=== PATIENT | female | born 1955 | race African-American/Black ===

== ENCOUNTER 2017-11-22 17:13 | Inpatient (IN) | payer OTHER ==
[2017-11-22 17:37] VITALS: BMI 23.1
--- NOTE | 2017-11-22 20:21 | HP ---
CIWA Score - CIWA Score Nausea/Vomitin Muscle Tremors: 3 Anxiety: 4-Mod. Anxious/Guarded Agitation: 1-Slight > Activity Paroxysmal Sweats: No Perspiration Orientation: 0-Oriented Tacttile Disturbances: 3-Moderate Itch/Numb/Burn Auditory Disturbances: 0-None Visual Disturbances: 2-Mild Sensitivity Headache: 3-Moderate CIWA-Ar Total Score: 18 Admission ROS BHS - HPI Chief Complaint: Alcohol withdrawal symptoms Allergies/Adverse Reactions: Allergies Allergy/AdvReac Type Severity Reaction Status Date / Time No Known Allergies Allergy Verified 11/22/17 20:01 History of Present Illness: 62 years old female with a long history of alcohol dependence is seeking admission to detox. Patient was in detox in 2010 and reports insignificant period of sobriety. She has medical history HTN, dementia, hyperlipidemia, anxiety and depression. She reports suicide attempt in 2012 and denies suicidal ideation at this time. Patient is on buprenorphine/naloxone tablet 8-2mg 1 tablet sublingual daily. LDM was today. Exam Limitations: No Limitations - Ebola screening Have you traveled outside of the country in the last 21 days: No Have you had contact with anyone from an Ebola affected area: No Have you been sick,other than usual withdrawal symptoms: No Do you have a fever: No - Review of Systems Constitutional: Chills, Loss of Appetite, Malaise, Changes in sleep EENT: reports: Cataracts (right eyes- reports blurred vision in right eye) Respiratory: reports: No Symptoms reported Cardiac: reports: No Symptoms Reported GI: reports: Diarrhea (x 2), Nausea, Poor Appetite, Poor Fluid Intake, Abdominal cramping : reports: No Symptoms Reported Musculoskeletal: reports: Back Pain Integumentary: reports: Dryness Neuro: reports: Headache, Tremors Endocrine: reports: No Symptoms Reported Hematology: reports: No Symptoms Reported Psychiatric: reports: Anxious, Depressed Other Systems: Reviewed and Negative Patient History - Patient Medical History Hx Anemia: No Hx Asthma: No Hx Chronic Obstructive Pulmonary Disease (COPD): No Hx Cancer: No Hx Cardiac Disorders: No Hx Congestive Heart Failure: No Hx Hypertension: Yes (amlodipine ) Hx Hypercholesterolemia: No Hx Pacemaker: No HX Cerebrovascular Accident: No Hx Seizures: No Hx Dementia: Yes (Not on medication) Hx Diabetes: No Hx Gastrointestinal Disorders: No Hx Liver Disease: No Hx Genitourinary Disorders: No Hx Sexually Transmitted Disorders: No Hx Renal Disease (ESRD): No Hx Thyroid Disease: No Hx Human Immunodeficiency Virus (HIV): No (Negative 2017) Hx Hepatitis C: No Hx Depression: Yes (Prozac) Hx Suicide Attempt: Yes (Attempt in 2013, denies suicidal ideation at this time) Hx Bipolar Disorder: No Hx Schizophrenia: No Other Medical History: Anxiety - Not on medication - Patient Surgical History Past Surgical History: No - PPD History Previous Implant?: No (PPD POSITIVE . INH TREATMENT FOR 6 MONTHS) Documented Results: Positive w/proof Implanted On Prior [facility] Admission?: No PPD to be Administered?: No - Reproductive History Patient is a Female of Child Bearing Age (11 -55 yrs old): Yes LMP comment: MENOPAUSAL Patient : No - Smoking Cessation Smoking history: Current some day smoker Aproximately how many cigarettes per day: 10 Hx Chewing Tobacco Use: No Initiated information on smoking cessation: Yes 'Breaking Loose' booklet given: 11/22/17 - Substance & Tx. History Hx Alcohol Use: Yes Hx Substance Use: No Substance Use Type: Alcohol Hx Substance Use Treatment: Yes ([facility] 2010) - Substances Abused Alcohol Route: Oral Frequency: Daily Amount used: 6 pack BEER Age of first use: 28 Date of Last Use: 11/22/17 Family Disease History - Family Disease History Family History: Denies Admission Physical Exam [facility] - Vital Signs Vital Signs: Vital Signs - 24 hr 11/22/17 17:30 Temperature 98.8 F Pulse Rate 78 Respiratory 18 Rate Blood Pressure 125/82 - Physical General Appearance: Yes: Moderate Distress, Tremorous, Irritable, Sweating, Anxious HEENTM: Yes: Normocephalic, Rhinorrhea, Other (right eye cataract) Respiratory: Yes: Lungs Clear, Normal Breath Sounds, No Respiratory Distress Neck: Yes: Supple Breast: Yes: Breast Exam Deferred Cardiology: Yes: Regular Rhythm, Regular Rate Abdominal: Yes: Normal Bowel Sounds, Soft Genitourinary: Yes: Within Normal Limits Back: Yes: Normal Inspection Musculoskeletal: Yes: Back pain Extremities: Yes: Tremors Neurological: Yes: Alert, Normal Mood/Affect Integumentary: Yes: Dry Lymphatic: Yes: Within Normal Limits - Diagnostic (1) Alcohol dependence with uncomplicated withdrawal Current Visit: Yes Status: Chronic (2) Depression Current Visit: Yes Status: Chronic Qualifiers: Depression Type: unspecified Qualified Code(s): F32.9 - Major depressive disorder, single episode, unspecified (3) Anxiety Current Visit: Yes Status: Chronic (4) Hypertension Current Visit: Yes Status: Chronic (5) Encounter for monitoring Suboxone maintenance therapy Current Visit: Yes Status: Chronic (6) Dementia Current Visit: Yes Status: Chronic (7) Hyperlipidemia Current Visit: Yes Status: Chronic Qualifiers: Hyperlipidemia type: unspecified Qualified Code(s): E78.5 - Hyperlipidemia , unspecified Cleared for Admission [facility] - Detox or Rehab [facility] Level of Care: Medically Managed Detox Regimen/Protocol: Librium [facility] Breath Alcohol Content Breath Alcohol Content: 0.109 Urine Pregancy Test - Result Urine Test Results: Negative- NO Line Present Urine Drug Screen - Results Drug Screen Negative: Yes
[2017-11-22] MEDS ORDERED: ACETAMINOPHEN 325 MG TABLET (FP) PO PRN (20:43)
[2017-11-22] MEDS ORDERED: MAGNESIUM CITRATE 300 ML BOTTLE PO PRN (20:43)
[2017-11-22] MEDS ORDERED: LOPERAMIDE HCL 2 MG CAPSULE PO PRN (20:43)
[2017-11-22] MEDS ORDERED: MENTHOL/PHENOL 1 EACH UD MM PRN (20:43)
[2017-11-22] MEDS ORDERED: MAGNESIUM HYDROX 2400MG/30ML ORAL SUSPENSION 30 ML CUP PO PRN (20:43)
[2017-11-22] MEDS ORDERED: chlordiazePOXIDE HCL 25 MG CAPSULE PO PRN (20:43)
[2017-11-22] MEDS ORDERED: IBUPROFEN 400 MG TABLET (FP) PO PRN (20:43)
[2017-11-22] MEDS ORDERED: guaiFENesin/D-METHORPHAN HB 10 ML UNIT-DOSE CUPS PO PRN (20:43)
[2017-11-22] MEDS ORDERED: NICOTINE POLACRILEX 2 MG GUM BUC PRN (20:43)
[2017-11-22] MEDS ORDERED: P-EPHED 60MG/TRIPROLIDI 2.5MG TABLET PO PRN (20:43)
[2017-11-22] MEDS ORDERED: LIDOCAINE 2.5%/PRILOCAINE 2.5% (5 Gram/TUBE) TP ONE (20:47)
[2017-11-22] MEDS ORDERED: LIDOCAINE 2.5%/PRILOCAINE 2.5% (5 Gram/TUBE) TP SCH (21:00)
[2017-11-22] MEDS ORDERED: MELATONIN 5 MG TABLETS PO PRN (22:00)
[2017-11-22] MEDS ORDERED: chlordiazePOXIDE HCL 25 MG CAPSULE PO SCH (23:00)
[2017-11-23] MEDS ORDERED: chlordiazePOXIDE HCL 25 MG CAPSULE PO PRN (01:11)
[2017-11-23] MEDS ORDERED: chlordiazePOXIDE HCL 25 MG CAPSULE PO ONE (01:11)
[2017-11-23] MEDS ORDERED: cloNIDine HCL 0.1 MG TABLET PO ONE (01:17)
[2017-11-23] MEDS: THIAMINE HCL 100 MG TABLET (FP) PO SCH ×2 (01:26→22:30)
[2017-11-23] MEDS: GABAPENTIN 300 MG CAPSULE (FP) PO SCH ×3 (01:26→22:30)
[2017-11-23 01:48] LABS: URINE APPEARANCE CLEAR; URINE BILIRUBIN NEGATIVE (<2.0 mg/dL); URINE COLOR LTYELLOW; URINE GLUCOSE (UA) NEGATIVE (NEGATIVE); URINE KETONE NEGATIVE (NEGATIVE); URINE LEUK ESTERASE NEGATIVE (NEGATIVE); URINE NITRITE NEGATIVE (NEGATIVE); URINE PROTEIN NEGATIVE (NEGATIVE); URINE UROBILINOGEN NEGATIVE mg/dL (0.2-1.0)
[2017-11-23] MEDS: chlordiazePOXIDE HCL 25 MG CAPSULE PO SCH ×4 (05:57→22:31)
--- NOTE | 2017-11-23 07:42 | CONSULT ---
[facility] Psychiatric Consult - Data Date of interview: 11/23/17 Admission source: [facility] Identifying data: This is 62 years old female, widiwed, mother of three, living alone, on SSI, with a long history of alcohol dependence is seeking admission to detox. Patient was in detox in 2010 and reports insignificant period of sobriety. Patient reports no psychiatric hospitalization history Substance Abuse History: - Smoking Cessation. Smoking history: Current some day smoker. Aproximately how many cigarettes per day: 10. Hx Chewing Tobacco Use: No. Initiated information on smoking cessation: Yes. 'Breaking Loose' booklet given: 11/22/17. - Substance & Tx. History. Hx Alcohol Use: Yes. Hx Substance Use: No. Substance Use Type: Alcohol. Hx Substance Use Treatment: Yes ([facility] 2010). - Substances Abused. Alcohol. Route: Oral. Frequency: Daily. Amount used: 6 pack BEER. Age of first use: 28. Date of Last Use: Medical History: HTN, Hyperlipidemia, Psychiatric History: Patient reports history of deporession and anxiety, reports taking prior to admission: Trazodone 100mg po qhs. Prozac 20mg poqd Physical/Sexual Abuse/Trauma History: Denies Additional Comment: Trazodone 100mg po qhs. Prozac 20mg poqd Mental Status Exam - Mental Status Exam Alert and Oriented to: Person Cognitive Function: Fair Patient Appearance: Well Groomed Mood: Apprehensive Affect: Mood Congruent Patient Behavior: Cooperative Speech Pattern: Appropriate Voice Loudness: Normal Thought Process: Goal Oriented Thought Disorder: Being Controlled Hallucinations: Denies Suicidal Ideation: Denies Homicidal Ideation: Denies Insight/Judgement: Fair Sleep: Difficulty falling asleep Appetite: Weight gain Muscle strength/Tone: Mild Hypotonicity Gait/Station: Shuffling Additional Comments: Trazodone 100mg po qhs. Prozac 20mg poqd Psychiatric Findings - Problem List ([place] 1, 2,3) (1) Nicotine dependence Current Visit: Yes Status: Acute (2) Drug-induced mood disorder Current Visit: Yes Status: Acute (3) Alcohol dependence with uncomplicated withdrawal Current Visit: Yes Status: Chronic (4) Dementia Current Visit: Yes Status: Suspected (5) Hyperlipidemia Current Visit: Yes Status: Chronic Qualifiers: Hyperlipidemia type: unspecified Qualified Code(s): E78.5 - Hyperlipidemia , unspecified (6) Hypertension Current Visit: Yes Status: Chronic - Initial Treatment Plan Initial Treatment Plan: Trazodone 100mg po qhs. Prozac 20mg poqd
[2017-11-23 10:00] LABS: HEMATOCRIT 41.6 % (32.4-45.2); HEMOGLOBIN 14.1 GM/dL (10.7-15.3); MCH 33.1 pg (25.7-33.7); MCHC 33.8 g/dl (32.0-36.0); MEAN CELL VOLUME 97.7 fl (80-96); MEAN PLT VOLUME 8.2 fl (7.5-11.1); PLATELET COUNT 229 K/MM3 (134-434); RBC 4.26 M/mm3 (3.60-5.2); WHITE BLOOD COUNT 5.8 K/mm3 (4.0-10.0)
[2017-11-23 10:19] LABS: CHLORIDE 103 mmol/L (98-107); POTASSIUM 4.5 mmol/L (3.5-5.1); SODIUM 139 mmol/L (136-145)
[2017-11-23] MEDS: LORATADINE 10 MG TABLET PO SCH (10:31)
[2017-11-23] MEDS: BUPRENORPHINE/NALOXONE 8 MG/2 MG FILM PACKET SL SCH (10:31)
[2017-11-23] MEDS: PRENATAL VITAMINS W/ FOLIC ACID TABLET (FP) PO SCH (10:31)
[2017-11-23] MEDS: FLUoxetine HCL 20 MG CAPSULE (FP) PO SCH (10:31)
[2017-11-23] MEDS: amLODIPine BESYLATE 5 MG TABLET (FP) PO SCH (10:32)
[2017-11-23 10:43] LABS: ALBUMIN 3.7 g/dl (3.4-5.0); ALK PHOS 88 U/L (45-117); ANION GAP 7 (8-16); BILIRUBIN,TOTAL 0.6 mg/dL (0.2-1.0); BLOOD UREA NITROGEN 6 mg/dL (7-18); CALCIUM 9.5 mg/dL (8.5-10.1); CO2 29 mmol/L (21-32); CREATININE 0.7 mg/dL (0.55-1.02); GLUCOSE,RANDOM 82 mg/dL (74-106); SGOT/AST 25 U/L (15-37); SGPT/ALT 36 U/L (12-78); TOT PROT 7.4 g/dl (6.4-8.2)
[2017-11-23] MEDS: NICOTINE 14 MG/24 HOURS TOPICAL PATCH TD SCH (11:05)
--- NOTE | 2017-11-23 11:15 | PN ---
[facility] CIWA - CIWA Score Nausea/Vomitin-Mild Nausea/No Vomiting Muscle Tremors: 4-Moderate,w/Arms Extend Anxiety: 4-Mod. Anxious/Guarded Agitation: 3 Paroxysmal Sweats: 1-Minimal Palms Moist Orientation: 0-Oriented Tacttile Disturbances: 1-Very Mild Itch/Numbness Auditory Disturbances: 0-None Visual Disturbances: 0-None Headache: 1-Very Mild CIWA-Ar Total Score: 15 BHS Progress Note (SOAP) Subjective: sweat tremor restlessness mild gi distress last filled suboxone 11/20/17 x 30 days Objective: 11/23/17 11:17 Vital Signs Temperature 98.6 F 11/23/17 10:52 Pulse Rate 67 11/23/17 10:52 Respiratory Rate 16 11/23/17 10:52 Blood Pressure 108/66 11/23/17 10:52 O2 Sat by Pulse Oximetry (%) Laboratory Last Values WBC 5.8 K/mm3 (4.0-10.0) 11/23/17 08:00 RBC 4.26 M/mm3 (3.60-5.2) 11/23/17 08:00 Hgb 14.1 GM/dL (10.7-15.3) 11/23/17 08:00 Hct 41.6 % (32.4-45.2) 11/23/17 08:00 MCV 97.7 fl (80-96) H 11/23/17 08:00 MCH 33.1 pg (25.7-33.7) 11/23/17 08:00 MCHC 33.8 g/dl (32.0-36.0) 11/23/17 08:00 RDW 13.0 % (11.6-15.6) 11/23/17 08:00 Plt Count 229 K/MM3 (134-434) 11/23/17 08:00 MPV 8.2 fl (7.5-11.1) 11/23/17 08:00 Sodium 139 mmol/L (136-145) 11/23/17 08:00 Potassium 4.5 mmol/L (3.5-5.1) 11/23/17 08:00 Chloride 103 mmol/L (98-107) 11/23/17 08:00 Carbon Dioxide 29 mmol/L (21-32) 11/23/17 08:00 Anion Gap 7 (8-16) L 11/23/17 08:00 BUN 6 mg/dL (7-18) L 11/23/17 08:00 Creatinine 0.7 mg/dL (0.55-1.02) 11/23/17 08:00 Creat Clearance w eGFR > 60 (>60) 11/23/17 08:00 Random Glucose 82 mg/dL (74-106) 11/23/17 08:00 Calcium 9.5 mg/dL (8.5-10.1) 11/23/17 08:00 Total Bilirubin 0.6 mg/dL (0.2-1.0) 11/23/17 08:00 AST 25 U/L (15-37) 11/23/17 08:00 ALT 36 U/L (12-78) 11/23/17 08:00 Alkaline Phosphatase 88 U/L (45-117) 11/23/17 08:00 Total Protein 7.4 g/dl (6.4-8.2) 11/23/17 08:00 Albumin 3.7 g/dl (3.4-5.0) 11/23/17 08:00 Urine Color Ltyellow 11/22/17 01:30 Urine Appearance Clear 11/22/17 01:30 Urine pH 6.0 (5.0-8.0) 11/22/17 01:30 Ur Specific [place] 1.004 (1.001-1.035) 11/22/17 01:30 Urine Protein Negative (NEGATIVE) 11/22/17 01:30 Urine Glucose (UA) Negative (NEGATIVE) 11/22/17 01:30 Urine Ketones Negative (NEGATIVE) 11/22/17 01:30 Urine Blood Negative (NEGATIVE) 11/22/17 01:30 Urine Nitrite Negative (NEGATIVE) 11/22/17 01:30 Urine Bilirubin Negative (<2.0 mg/dL) 11/22/17 01:30 Urine Urobilinogen Negative mg/dL (0.2-1.0) 11/22/17 01:30 Ur Leukocyte Esterase Negative (NEGATIVE) 11/22/17 01:30 RPR Titer Nonreactive (NONREACTIVE) 11/23/17 08:00 lab noted Assessment: 11/23/17 11:17 withdrawal sx Plan: continue detox c
--- NOTE | 2017-11-23 14:35 | EKG ---
Test Reason : Blood Pressure : / mmHG Vent. Rate : 071 BPM Atrial Rate : 071 BPM P-R Int : 138 ms QRS Dur : 088 ms QT Int : 446 ms P-R-T Axes : 019 021 017 degrees QTc Int : 484 ms NORMAL SINUS RHYTHM MODERATE VOLTAGE CRITERIA FOR LVH, MAY BE NORMAL VARIANT BORDERLINE ECG WHEN COMPARED WITH ECG OF 14-AUG-2010 11:35, NO SIGNIFICANT CHANGE WAS FOUND Confirmed by JESSE WILSON, KEI ([id number]) on 11/23/2017 2:35:36 PM Referred By: Confirmed By:KEI MOLINA MD
[2017-11-23] MEDS: traZODone HCL 100 MG TABLET (FP) PO SCH (22:31)
[2017-11-23] MEDS ORDERED: chlordiazePOXIDE HCL 25 MG CAPSULE PO SCH (23:00)
[2017-11-24] MEDS: chlordiazePOXIDE HCL 25 MG CAPSULE PO SCH ×4 (05:39→22:14)
[2017-11-24] MEDS: FLUoxetine HCL 20 MG CAPSULE (FP) PO SCH (10:44)
[2017-11-24] MEDS: amLODIPine BESYLATE 5 MG TABLET (FP) PO SCH (10:44)
[2017-11-24] MEDS: BUPRENORPHINE/NALOXONE 8 MG/2 MG FILM PACKET SL SCH (10:44)
[2017-11-24] MEDS: GABAPENTIN 300 MG CAPSULE (FP) PO SCH ×2 (10:44→22:13)
[2017-11-24] MEDS: LORATADINE 10 MG TABLET PO SCH (10:44)
[2017-11-24] MEDS: PRENATAL VITAMINS W/ FOLIC ACID TABLET (FP) PO SCH (10:44)
[2017-11-24] MEDS: NICOTINE 14 MG/24 HOURS TOPICAL PATCH TD SCH (10:53)
--- NOTE | 2017-11-24 14:48 | PN ---
S CIWA - CIWA Score Nausea/Vomitin-No Nausea/No Vomiting Muscle Tremors: None Anxiety: 0-No Anxiety, at Ease Agitation: 1-Slight > Activity Paroxysmal Sweats: 1-Minimal Palms Moist Orientation: 0-Oriented Tacttile Disturbances: 0-None Auditory Disturbances: 0-None Visual Disturbances: 0-None Headache: 0-None Present CIWA-Ar Total Score: 2 BHS Progress Note (SOAP) Subjective: without complaints, would like to go to rehab- talking to counselor about possibilities Objective: 11/24/17 14:47 Vital Signs - 24 hr 11/23/17 11/23/17 11/24/17 17:44 22:06 00:30 Temperature 97.9 F 98.2 F Pulse Rate 69 67 Respiratory 18 20 18 Rate Blood Pressure 126/72 123/74 11/24/17 11/24/17 11/24/17 03:30 06:12 09:40 Temperature 97.7 F 98.1 F Pulse Rate 71 70 Respiratory 18 18 18 Rate Blood Pressure 130/58 103/72 11/24/17 13:58 Temperature 98.1 F Pulse Rate 82 Respiratory 18 Rate Blood Pressure 94/67 Laboratory Tests 11/22/17 11/23/17 11/23/17 01:30 08:00 08:00 WBC 5.8 RBC 4.26 Hgb 14.1 Hct 41.6 MCV 97.7 H MCH 33.1 MCHC 33.8 RDW 13.0 Plt Count 229 MPV 8.2 Sodium 139 Potassium 4.5 Chloride 103 Carbon Dioxide 29 Anion Gap 7 L BUN 6 L Creatinine 0.7 Creat Clearance w eGFR > 60 Random Glucose 82 Calcium 9.5 Total Bilirubin 0.6 AST 25 ALT 36 Alkaline Phosphatase 88 Total Protein 7.4 Albumin 3.7 Urine Color Ltyellow Urine Appearance Clear Urine pH 6.0 Ur Specific [place] 1.004 Urine Protein Negative Urine Glucose (UA) Negative Urine Ketones Negative Urine Blood Negative Urine Nitrite Negative Urine Bilirubin Negative Urine Urobilinogen Negative Ur Leukocyte Esterase Negative RPR Titer 11/23/17 08:00 WBC RBC Hgb Hct MCV MCH MCHC RDW Plt Count MPV Sodium Potassium Chloride Carbon Dioxide Anion Gap BUN Creatinine Creat Clearance w eGFR Random Glucose Calcium Total Bilirubin AST ALT Alkaline Phosphatase Total Protein Albumin Urine Color Urine Appearance Urine pH Ur Specific [place] Urine Protein Urine Glucose (UA) Urine Ketones Urine Blood Urine Nitrite Urine Bilirubin Urine Urobilinogen Ur Leukocyte Esterase RPR Titer Nonreactive grossly nl PE Vs nl Assessment: 11/24/17 14:47 62 years old female with a long history of alcohol dependence is here for alcohol detox Plan: continue alcohol detox protocol, to rehab at discharge if bed available
[2017-11-24] MEDS: MAG HYDROX/AL HYDROX/SIMETH 30 ML UNIT-DOSE CUP PO PRN (15:01)
[2017-11-24] MEDS: THIAMINE HCL 100 MG TABLET (FP) PO SCH (22:13)
[2017-11-24] MEDS: traZODone HCL 100 MG TABLET (FP) PO SCH (22:14)
[2017-11-24] MEDS ORDERED: chlordiazePOXIDE 5 MG CAPSULE PO SCH (23:00)
[2017-11-25] MEDS: MAG HYDROX/AL HYDROX/SIMETH 30 ML UNIT-DOSE CUP PO PRN ×3 (00:03→22:02)
[2017-11-25] MEDS: chlordiazePOXIDE 5 MG CAPSULE PO SCH ×4 (06:39→22:00)
[2017-11-25] MEDS: LORATADINE 10 MG TABLET PO SCH (10:35)
[2017-11-25] MEDS: GABAPENTIN 300 MG CAPSULE (FP) PO SCH ×2 (10:36→22:00)
[2017-11-25] MEDS: PRENATAL VITAMINS W/ FOLIC ACID TABLET (FP) PO SCH (10:36)
[2017-11-25] MEDS: BUPRENORPHINE/NALOXONE 8 MG/2 MG FILM PACKET SL SCH (10:36)
[2017-11-25] MEDS: NICOTINE 14 MG/24 HOURS TOPICAL PATCH TD SCH (10:36)
[2017-11-25] MEDS: amLODIPine BESYLATE 5 MG TABLET (FP) PO SCH (10:36)
[2017-11-25] MEDS: FLUoxetine HCL 20 MG CAPSULE (FP) PO SCH (10:36)
--- NOTE | 2017-11-25 13:33 | PN ---
S Progress Note (SOAP) Subjective: Epigastric pain, joint pain, sleep interruption Objective: 11/25/17 13:32 Vital Signs - 8 hr 11/25/17 11/25/17 06:00 10:34 Temperature 97.7 F 98.2 F Pulse Rate 69 89 Respiratory 18 18 Rate Blood Pressure 116/68 110/70 Laboratory Last Values WBC 5.8 K/mm3 (4.0-10.0) 11/23/17 08:00 RBC 4.26 M/mm3 (3.60-5.2) 11/23/17 08:00 Hgb 14.1 GM/dL (10.7-15.3) 11/23/17 08:00 Hct 41.6 % (32.4-45.2) 11/23/17 08:00 MCV 97.7 fl (80-96) H 11/23/17 08:00 MCH 33.1 pg (25.7-33.7) 11/23/17 08:00 MCHC 33.8 g/dl (32.0-36.0) 11/23/17 08:00 RDW 13.0 % (11.6-15.6) 11/23/17 08:00 Plt Count 229 K/MM3 (134-434) 11/23/17 08:00 MPV 8.2 fl (7.5-11.1) 11/23/17 08:00 Sodium 139 mmol/L (136-145) 11/23/17 08:00 Potassium 4.5 mmol/L (3.5-5.1) 11/23/17 08:00 Chloride 103 mmol/L (98-107) 11/23/17 08:00 Carbon Dioxide 29 mmol/L (21-32) 11/23/17 08:00 Anion Gap 7 (8-16) L 11/23/17 08:00 BUN 6 mg/dL (7-18) L 11/23/17 08:00 Creatinine 0.7 mg/dL (0.55-1.02) 11/23/17 08:00 Creat Clearance w eGFR > 60 (>60) 11/23/17 08:00 Random Glucose 82 mg/dL (74-106) 11/23/17 08:00 Calcium 9.5 mg/dL (8.5-10.1) 11/23/17 08:00 Total Bilirubin 0.6 mg/dL (0.2-1.0) 11/23/17 08:00 AST 25 U/L (15-37) 11/23/17 08:00 ALT 36 U/L (12-78) 11/23/17 08:00 Alkaline Phosphatase 88 U/L (45-117) 11/23/17 08:00 Total Protein 7.4 g/dl (6.4-8.2) 11/23/17 08:00 Albumin 3.7 g/dl (3.4-5.0) 11/23/17 08:00 Urine Color Ltyellow 11/22/17 01:30 Urine Appearance Clear 11/22/17 01:30 Urine pH 6.0 (5.0-8.0) 11/22/17 01:30 Ur Specific [place] 1.004 (1.001-1.035) 11/22/17 01:30 Urine Protein Negative (NEGATIVE) 11/22/17 01:30 Urine Glucose (UA) Negative (NEGATIVE) 11/22/17 01:30 Urine Ketones Negative (NEGATIVE) 11/22/17 01:30 Urine Blood Negative (NEGATIVE) 11/22/17 01:30 Urine Nitrite Negative (NEGATIVE) 11/22/17 01:30 Urine Bilirubin Negative (<2.0 mg/dL) 11/22/17 01:30 Urine Urobilinogen Negative mg/dL (0.2-1.0) 11/22/17 01:30 Ur Leukocyte Esterase Negative (NEGATIVE) 11/22/17 01:30 RPR Titer Nonreactive (NONREACTIVE) 11/23/17 08:00 Labs noted Assessment: 11/25/17 13:32 Withdrawal sx Plan: Continue detox
[2017-11-25] MEDS: traZODone HCL 100 MG TABLET (FP) PO SCH (21:59)
[2017-11-25] MEDS: THIAMINE HCL 100 MG TABLET (FP) PO SCH (22:00)
[2017-11-25] MEDS ORDERED: chlordiazePOXIDE HCL 10 MG CAPSULE PO SCH (23:00)
[2017-11-26] MEDS: chlordiazePOXIDE HCL 10 MG CAPSULE PO SCH ×2 (05:50→10:31)
[2017-11-26 06:43] VITALS: BP 108/71; PULSE 74; TEMP 97.7
--- NOTE | 2017-11-26 08:50 | DS ---
[facility] Detox Discharge Summary Admission Date: 11/22/17 Discharge Date: 11/26/17 - History Present History: Alcohol Dependence Additional Comments: 62 years old female admitted on 11/22/17 for alcohol withdrawal sx completed alcohol detox regimen tolerated well denies alcohol withdrawal sx alert oriented x 3 no acute distress [facility] - Physical Exam Results Vital Signs: Vital Signs Temperature 97.7 F 11/26/17 06:00 Pulse Rate 74 11/26/17 06:00 Respiratory Rate 18 11/26/17 06:00 Blood Pressure 108/71 11/26/17 06:00 O2 Sat by Pulse Oximetry (%) Pertinent Admission Physical Exam Findings: alcohol withdrawal sx Vital Signs Temperature 97.7 F 11/26/17 06:00 Pulse Rate 74 11/26/17 06:00 Respiratory Rate 18 11/26/17 06:00 Blood Pressure 108/71 11/26/17 06:00 O2 Sat by Pulse Oximetry (%) Laboratory Last Values WBC 5.8 K/mm3 (4.0-10.0) 11/23/17 08:00 RBC 4.26 M/mm3 (3.60-5.2) 11/23/17 08:00 Hgb 14.1 GM/dL (10.7-15.3) 11/23/17 08:00 Hct 41.6 % (32.4-45.2) 11/23/17 08:00 MCV 97.7 fl (80-96) H 11/23/17 08:00 MCH 33.1 pg (25.7-33.7) 11/23/17 08:00 MCHC 33.8 g/dl (32.0-36.0) 11/23/17 08:00 RDW 13.0 % (11.6-15.6) 11/23/17 08:00 Plt Count 229 K/MM3 (134-434) 11/23/17 08:00 MPV 8.2 fl (7.5-11.1) 11/23/17 08:00 Sodium 139 mmol/L (136-145) 11/23/17 08:00 Potassium 4.5 mmol/L (3.5-5.1) 11/23/17 08:00 Chloride 103 mmol/L (98-107) 11/23/17 08:00 Carbon Dioxide 29 mmol/L (21-32) 11/23/17 08:00 Anion Gap 7 (8-16) L 11/23/17 08:00 BUN 6 mg/dL (7-18) L 11/23/17 08:00 Creatinine 0.7 mg/dL (0.55-1.02) 11/23/17 08:00 Creat Clearance w eGFR > 60 (>60) 11/23/17 08:00 Random Glucose 82 mg/dL (74-106) 11/23/17 08:00 Calcium 9.5 mg/dL (8.5-10.1) 11/23/17 08:00 Total Bilirubin 0.6 mg/dL (0.2-1.0) 11/23/17 08:00 AST 25 U/L (15-37) 11/23/17 08:00 ALT 36 U/L (12-78) 11/23/17 08:00 Alkaline Phosphatase 88 U/L (45-117) 11/23/17 08:00 Total Protein 7.4 g/dl (6.4-8.2) 11/23/17 08:00 Albumin 3.7 g/dl (3.4-5.0) 11/23/17 08:00 Urine Color Ltyellow 11/22/17 01:30 Urine Appearance Clear 11/22/17 01:30 Urine pH 6.0 (5.0-8.0) 11/22/17 01:30 Ur Specific [place] 1.004 (1.001-1.035) 11/22/17 01:30 Urine Protein Negative (NEGATIVE) 11/22/17 01:30 Urine Glucose (UA) Negative (NEGATIVE) 11/22/17 01:30 Urine Ketones Negative (NEGATIVE) 11/22/17 01:30 Urine Blood Negative (NEGATIVE) 11/22/17 01:30 Urine Nitrite Negative (NEGATIVE) 11/22/17 01:30 Urine Bilirubin Negative (<2.0 mg/dL) 11/22/17 01:30 Urine Urobilinogen Negative mg/dL (0.2-1.0) 11/22/17 01:30 Ur Leukocyte Esterase Negative (NEGATIVE) 11/22/17 01:30 RPR Titer Nonreactive (NONREACTIVE) 11/23/17 08:00 lab noted - Treatment Hospital Course: Detox Protocol Followed, Detoxed Safely, Responded well, Discharged Condition Good, Rehab Referral Accepted Patient has Accepted a Rehab Referral to: [facility] - Medication Discharge Medications: Ambulatory Orders Buprenorphine HCl/Naloxone HCl [Suboxone 8 mg-2 mg Sl Tablets] 1 each SL DAILY 11/22/17 Cetirizine HCl [Zyrtec -] 10 mg PO DAILY 11/22/17 Fluoxetine HCl [Prozac] 20 mg PO DAILY #30 capsule 11/23/17 Trazodone HCl 100 mg PO HS #30 tablet 11/23/17 Amlodipine Besylate 5 mg PO DAILY #14 tablet 11/26/17 Gabapentin 300 mg PO BID #30 capsule 11/26/17 - Diagnosis (1) Nicotine dependence Current Visit: Yes Status: Acute Qualifiers: Nicotine product type: cigarettes Substance use status: in withdrawal Qualified Code(s): F17.213 - Nicotine dependence, cigarettes, with withdrawal (2) Alcohol dependence with uncomplicated withdrawal Current Visit: Yes Status: Acute (3) Encounter for monitoring Suboxone maintenance therapy Current Visit: Yes Status: Chronic (4) Hyperlipidemia Current Visit: Yes Status: Chronic Qualifiers: Hyperlipidemia type: unspecified Qualified Code(s): E78.5 - Hyperlipidemia , unspecified (5) Hypertension Current Visit: Yes Status: Chronic Qualifiers: Hypertension type: essential hypertension Qualified Code(s): I10 - Essential (primary) hypertension - AMA Did Patient Leave Against Medical Advice: No
[2017-11-26] MEDS: BUPRENORPHINE/NALOXONE 8 MG/2 MG FILM PACKET SL SCH (10:31)
[2017-11-26] MEDS: PRENATAL VITAMINS W/ FOLIC ACID TABLET (FP) PO SCH (10:31)
[2017-11-26] MEDS: NICOTINE 14 MG/24 HOURS TOPICAL PATCH TD SCH (10:31)
[2017-11-26] MEDS: FLUoxetine HCL 20 MG CAPSULE (FP) PO SCH (10:31)
[2017-11-26] MEDS: amLODIPine BESYLATE 5 MG TABLET (FP) PO SCH (10:31)
[2017-11-26] MEDS: GABAPENTIN 300 MG CAPSULE (FP) PO SCH (10:31)
[2017-11-26] MEDS: LORATADINE 10 MG TABLET PO SCH (11:29)
== END 2017-11-26 14:58 | disposition home or self-care (01) | DRG 775 ==
LOC: YASAS 17:13 → Y6N 19:35
PROVIDERS: ADMIT Surgery; ATTEND Surgery
PROC: HZ2ZZZZ Detoxification Services for Substance Abuse Treatment (ICD-10-PCS; principal; 2017-11-22)
DX: F10.230 Alcohol dependence with withdrawal, uncomplicated (principal); F17.213 Nicotine dependence, cigarettes, with withdrawal; F19.24 Other psychoactive substance dependence with psychoactive substance-induced mood disorder; F41.9 Anxiety disorder, unspecified; F32.9 Major depressive disorder, single episode, unspecified; I10 Essential (primary) hypertension; E78.5 Hyperlipidemia, unspecified; F03.90 Unspecified dementia, unspecified severity, without behavioral disturbance, psychotic disturbance, mood disturbance, and anxiety; Z51.81 Encounter for therapeutic drug level monitoring; Z91.5 Personal history of self-harm
CPT/HCPCS: 36415; 71046-TC-FY; 80053; 81003; 85027; 86593; 93005; 93010; J0735

== ENCOUNTER 2017-11-27 10:56 | Inpatient (IN) | payer OTHER ==
[2017-11-27 13:12] VITALS: BMI 23.1
--- NOTE | 2017-11-27 14:15 | HP ---
Admission [facility] - HPI Allergies/Adverse Reactions: Allergies Allergy/AdvReac Type Severity Reaction Status Date / Time No Known Allergies Allergy Verified 11/22/17 20:01 - Ebola screening Have you traveled outside of the country in the last 21 days: No Have you had contact with anyone from an Ebola affected area: No Have you been sick,other than usual withdrawal symptoms: No Do you have a fever: No Patient History - Patient Medical History Hx Anemia: No Hx Asthma: No Hx Chronic Obstructive Pulmonary Disease (COPD): No Hx Cancer: No Hx Cardiac Disorders: No Hx Congestive Heart Failure: No Hx Hypertension: Yes (amlodipine ) Hx Hypercholesterolemia: No Hx Pacemaker: No HX Cerebrovascular Accident: No Hx Seizures: No Hx Dementia: Yes (not on medication) Hx Diabetes: No Hx Gastrointestinal Disorders: No Hx Liver Disease: No Hx Genitourinary Disorders: No Hx Sexually Transmitted Disorders: No Hx Renal Disease (ESRD): No Hx Thyroid Disease: No Hx Human Immunodeficiency Virus (HIV): No (Negative 2017) Hx Hepatitis C: No Hx Depression: Yes (Prozac) Hx Suicide Attempt: Yes (Attempt in 2012, denies suicidal ideation at this time) Hx Bipolar Disorder: No Hx Schizophrenia: No - Patient Surgical History Past Surgical History: No - Smoking Cessation Smoking history: Current some day smoker Aproximately how many cigarettes per day: 10 Hx Chewing Tobacco Use: No - Substances Abused Alcohol Route: Oral Frequency: Daily Amount used: 6pk beer Age of first use: 28 Date of Last Use: 11/22/17 Admission Physical Exam [facility] - Vital Signs Vital Signs: Vital Signs - 24 hr 11/27/17 13:08 Temperature 98.6 F Pulse Rate 83 Respiratory 16 Rate Blood Pressure 140/79 Cleared for Admission [facility] - Detox or Rehab [facility] Level of Care: Medically Managed Detox Regimen/Protocol: Librium [facility] Breath Alcohol Content Breath Alcohol Content: 0 Urine Drug Screen - Results Drug Screen Negative: No Urine Drug Screen Results: BZO-Benzodiazepines
--- NOTE | 2017-11-27 14:25 | HP ---
Admission ROS [facility] - [facility] Chief Complaint: I WANT TO GO TO REHAB Allergies/Adverse Reactions: Allergies Allergy/AdvReac Type Severity Reaction Status Date / Time No Known Allergies Allergy Verified 11/22/17 20:01 History of Present Illness: 62 YEARS OLD FEMALE WITH LONG HISTORY OF ALCOHOL NICOTINE DEPENDENCE HAS HYPERTENSION Exam Limitations: No Limitations - Ebola screening Have you traveled outside of the country in the last 21 days: No Have you had contact with anyone from an Ebola affected area: No Have you been sick,other than usual withdrawal symptoms: No Do you have a fever: No - Review of Systems Constitutional: Weight Stable EENT: reports: Dental Problems (MULTIPLE TEETH MISSING) Respiratory: reports: No Symptoms reported Cardiac: reports: No Symptoms Reported GI: reports: No Symptoms Reported : reports: No Symptoms Reported Musculoskeletal: reports: Back Pain (CHRONIC) Integumentary: reports: Change in Color (BACK), Pruritus (back hyperpigmentation itching) Neuro: reports: No Symptoms reported Endocrine: reports: No Symptoms Reported Hematology: reports: No Symptoms Reported Psychiatric: reports: Judgement Intact, Mood/Affect Appropiate, Orientated x3 Other Systems: Reviewed and Negative Patient History - Patient Medical History Hx Anemia: No Hx Asthma: No Hx Chronic Obstructive Pulmonary Disease (COPD): No Hx Cancer: No Hx Cardiac Disorders: No Hx Congestive Heart Failure: No Hx Hypertension: Yes (amlodipine ) Hx Hypercholesterolemia: No Hx Pacemaker: No HX Cerebrovascular Accident: No Hx Seizures: No Hx Dementia: Yes (not on medication) Hx Diabetes: No Hx Gastrointestinal Disorders: No Hx Liver Disease: No Hx Genitourinary Disorders: No Hx Sexually Transmitted Disorders: No Hx Renal Disease (ESRD): No Hx Thyroid Disease: No Hx Human Immunodeficiency Virus (HIV): No (Negative 2017) Hx Hepatitis C: No Hx Depression: Yes (Prozac) Hx Suicide Attempt: Yes (Attempt in 2013, denies suicidal ideation at this time) Hx Bipolar Disorder: No Hx Schizophrenia: No - Patient Surgical History Past Surgical History: No - PPD History Previous Implant?: Yes Documented Results: Positive w/proof Implanted On Prior [facility] Admission?: No PPD to be Administered?: No - Reproductive History Patient is a Female of Child Bearing Age (11 -55 yrs old): No Patient : No - Smoking Cessation Smoking history: Current some day smoker Aproximately how many cigarettes per day: 10 Hx Chewing Tobacco Use: No Initiated information on smoking cessation: Yes 'Breaking Loose' booklet given: 11/27/17 - Substance & Tx. History Hx Alcohol Use: Yes Hx Substance Use: No Substance Use Type: Alcohol Hx Substance Use Treatment: Yes (10/2017 [facility]) - Substances Abused Alcohol Route: Oral Frequency: Daily Amount used: 6pk beer Age of first use: 28 Date of Last Use: 11/22/17 Family Disease History - Family Disease History Family Disease History: Other: Father (/NO CONTACT) Admission Physical Exam [facility] - Vital Signs Vital Signs: Vital Signs - 24 hr 11/27/17 13:08 Temperature 98.6 F Pulse Rate 83 Respiratory 16 Rate Blood Pressure 140/79 - Physical General Appearance: Yes: Nourished, Appropriately Dressed HEENTM: Yes: Hearing grossly Normal, Normocephalic, Normal Voice, Other (FEW TEETH LEFT) Respiratory: Yes: Chest Non-Tender, Lungs Clear, Normal Breath Sounds, No Respiratory Distress, No Accessory Muscle Use Neck: Yes: Supple, Trachea in good position Breast: Yes: Breasts Symetrical, No Discharge Cardiology: Yes: Regular Rhythm, Regular Rate, S1, S2 Abdominal: Yes: Normal Bowel Sounds, Non Tender, Flat, Soft Genitourinary: Yes: Within Normal Limits Back: Yes: Normal Inspection Musculoskeletal: Yes: full range of Motion, Gait Steady, Back pain Extremities: Yes: Normal Inspection, Normal Range of Motion, Non-Tender Neurological: Yes: Alert, Motor Strength 5/5, Normal Mood/Affect, Normal Response Integumentary: Yes: Warm, Rash (back) Lymphatic: Yes: Within Normal Limits - Diagnostic (1) Alcohol dependence with uncomplicated withdrawal Current Visit: Yes Status: Acute (2) Nicotine dependence Current Visit: Yes Status: Acute Qualifiers: Nicotine product type: cigarettes Substance use status: in withdrawal Qualified Code(s): F17.213 - Nicotine dependence, cigarettes, with withdrawal (3) Encounter for monitoring Suboxone maintenance therapy Current Visit: Yes Status: Chronic (4) Hypertension Current Visit: Yes Status: Chronic Qualifiers: Hypertension type: essential hypertension Qualified Code(s): I10 - Essential (primary) hypertension Cleared for Admission [facility] - Detox or Rehab [facility] Level of Care: Observation Bed Detox Regimen/Protocol: Not Applicable Claeared for Rehab Admission: Yes [facility] Breath Alcohol Content Breath Alcohol Content: 0 Urine Drug Screen - Results Drug Screen Negative: No Urine Drug Screen Results: BZO-Benzodiazepines Inpatient Rehab Admission - Initial Determination Are CD services needed?: Yes Free of communicable disease: Yes Not in need of hospitalization: Yes - Rehab Admission Criteria Previous failed treatment: Yes Poor recovery environment: Yes Comorbidities: Yes Lacks judgement: No Patient is meeting Inpatient Rehab admission criteria:: Yes
[2017-11-27] MEDS ORDERED: MAGNESIUM CITRATE 300 ML BOTTLE PO PRN (14:37)
[2017-11-27] MEDS ORDERED: LOPERAMIDE HCL 2 MG CAPSULE PO PRN (14:37)
[2017-11-27] MEDS ORDERED: MAGNESIUM HYDROX 2400MG/30ML ORAL SUSPENSION 30 ML CUP PO PRN (14:37)
[2017-11-27] MEDS ORDERED: MENTHOL/PHENOL 1 EACH UD MM PRN (14:37)
[2017-11-27] MEDS ORDERED: P-EPHED 60MG/TRIPROLIDI 2.5MG TABLET PO PRN (14:37)
[2017-11-27] MEDS ORDERED: guaiFENesin/D-METHORPHAN HB 10 ML UNIT-DOSE CUPS PO PRN (14:37)
[2017-11-27] MEDS ORDERED: NICOTINE POLACRILEX 2 MG GUM BUC PRN (14:37)
[2017-11-27] MEDS ORDERED: ALBUTEROL SO4 8 GM HFA INHALER IH PRN (14:46)
[2017-11-27] MEDS ORDERED: ALBUTEROL SO4 0.083% IH SOL 2.5 MG/3 ML VIAL.NEB. NEB PRN (14:47)
[2017-11-27] MEDS ORDERED: MELATONIN 5 MG TABLETS PO PRN (22:00)
[2017-11-27] MEDS: traZODone HCL 100 MG TABLET (FP) PO SCH (22:06)
[2017-11-27] MEDS: GABAPENTIN 300 MG CAPSULE (FP) PO SCH (22:06)
[2017-11-27] MEDS: THIAMINE HCL 100 MG TABLET (FP) PO SCH (22:06)
[2017-11-27] MEDS: HYDROCORTISONE 1% TOPICAL CREAM 30 GM TUBE TP SCH (22:07)
[2017-11-27] MEDS: NICOTINE 14 MG/24 HOURS TOPICAL PATCH TD SCH (22:08)
--- NOTE | 2017-11-28 00:03 | HP ---
Admission [facility] - [facility] Allergies/Adverse Reactions: Allergies Allergy/AdvReac Type Severity Reaction Status Date / Time No Known Allergies Allergy Verified 11/22/17 20:01 - Ebola screening Have you traveled outside of the country in the last 21 days: No Have you had contact with anyone from an Ebola affected area: No Have you been sick,other than usual withdrawal symptoms: No Do you have a fever: No Patient History - Patient Medical History Hx Anemia: No Hx Asthma: No Hx Chronic Obstructive Pulmonary Disease (COPD): No Hx Cancer: No Hx Cardiac Disorders: No Hx Congestive Heart Failure: No Hx Hypertension: Yes Hx Hypercholesterolemia: No Hx Pacemaker: No HX Cerebrovascular Accident: No Hx Seizures: No Hx Dementia: Yes (not on medication) Hx Diabetes: No Hx Gastrointestinal Disorders: No Hx Liver Disease: No Hx Genitourinary Disorders: No Hx Sexually Transmitted Disorders: No Hx Renal Disease (ESRD): No Hx Thyroid Disease: No Hx Human Immunodeficiency Virus (HIV): No (Negative 2018) Hx Hepatitis C: No Hx Depression: Yes Hx Suicide Attempt: Yes (X2) Hx Bipolar Disorder: No Hx Schizophrenia: No - Patient Surgical History Past Surgical History: No Hx Neurologic Surgery: No Hx Cataract Extraction: No Hx Cardiac Surgery: No Hx Lung Surgery: No Hx Breast Surgery: No Hx Breast Biopsy: No Hx Abdominal Surgery: No Hx Appendectomy: No Hx Cholecystectomy: No Hx Genitourinary Surgery: No Hx Section: No Hx Orthopedic Surgery: No Anesthesia Reaction: No - PPD History Previous Implant?: Yes Documented Results: Positive w/proof Implanted On Prior [facility] Admission?: No - Reproductive History Patient : No - Smoking Cessation Smoking history: Current some day smoker Aproximately how many cigarettes per day: 10 Hx Chewing Tobacco Use: No Initiated information on smoking cessation: Yes - Substances Abused Alcohol Route: Oral Frequency: Daily Amount used: 6pk beer Age of first use: 28 Date of Last Use: 11/22/17 Family Disease History - Family Disease History Family Disease History: Other: Father (/NO CONTACT) Admission Physical Exam S - Vital Signs Vital Signs: Vital Signs - 24 hr 11/27/17 13:08 Temperature 98.6 F Pulse Rate 83 Respiratory 16 Rate Blood Pressure 140/79 [facility] Breath Alcohol Content Breath Alcohol Content: 0 Urine Drug Screen - Results Drug Screen Negative: No Urine Drug Screen Results: BZO-Benzodiazepines
[2017-11-28] MEDS ORDERED: PT OWN MED DRAWER 7, Y5N ONE (08:58)
[2017-11-28] MEDS: HYDROCORTISONE 1% TOPICAL CREAM 30 GM TUBE TP SCH ×2 (09:34→22:05)
[2017-11-28] MEDS: GABAPENTIN 300 MG CAPSULE (FP) PO SCH ×2 (09:35→22:04)
[2017-11-28] MEDS: FLUoxetine HCL 20 MG CAPSULE (FP) PO SCH (09:35)
[2017-11-28] MEDS: PRENATAL VITAMINS W/ FOLIC ACID TABLET (FP) PO SCH (09:35)
[2017-11-28] MEDS: amLODIPine BESYLATE 5 MG TABLET (FP) PO SCH (09:35)
[2017-11-28] MEDS: BUPRENORPHINE/NALOXONE 8 MG/2 MG FILM PACKET SL SCH (09:36)
[2017-11-28] MEDS: NICOTINE 14 MG/24 HOURS TOPICAL PATCH TD SCH (09:36)
[2017-11-28] MEDS: traZODone HCL 100 MG TABLET (FP) PO SCH (22:04)
[2017-11-28] MEDS: THIAMINE HCL 100 MG TABLET (FP) PO SCH (22:04)
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
[2017-11-29] MEDS: PRENATAL VITAMINS W/ FOLIC ACID TABLET (FP) PO SCH (10:13)
[2017-11-29] MEDS: FLUoxetine HCL 20 MG CAPSULE (FP) PO SCH (10:13)
[2017-11-29] MEDS: GABAPENTIN 300 MG CAPSULE (FP) PO SCH ×2 (10:13→21:11)
[2017-11-29] MEDS: HYDROCORTISONE 1% TOPICAL CREAM 30 GM TUBE TP SCH ×2 (10:13→21:12)
[2017-11-29] MEDS: NICOTINE 14 MG/24 HOURS TOPICAL PATCH TD SCH (10:14)
[2017-11-29] MEDS: amLODIPine BESYLATE 5 MG TABLET (FP) PO SCH (10:14)
[2017-11-29] MEDS: BUPRENORPHINE/NALOXONE 8 MG/2 MG FILM PACKET SL SCH (10:16)
[2017-11-29] MEDS ORDERED: PT OWN MED DRAWER 7, Y5N ONE (15:45)
[2017-11-29] MEDS: MAG HYDROX/AL HYDROX/SIMETH 30 ML UNIT-DOSE CUP PO PRN ×2 (15:48→23:01)
[2017-11-29] MEDS: THIAMINE HCL 100 MG TABLET (FP) PO SCH (21:11)
[2017-11-29] MEDS: traZODone HCL 100 MG TABLET (FP) PO SCH (21:11)
[2017-11-30] MEDS: amLODIPine BESYLATE 5 MG TABLET (FP) PO SCH (10:07)
[2017-11-30] MEDS: PRENATAL VITAMINS W/ FOLIC ACID TABLET (FP) PO SCH (10:07)
[2017-11-30] MEDS: FLUoxetine HCL 20 MG CAPSULE (FP) PO SCH (10:07)
[2017-11-30] MEDS: GABAPENTIN 300 MG CAPSULE (FP) PO SCH ×2 (10:07→21:27)
[2017-11-30] MEDS: NICOTINE 14 MG/24 HOURS TOPICAL PATCH TD SCH (10:08)
[2017-11-30] MEDS: BUPRENORPHINE/NALOXONE 8 MG/2 MG FILM PACKET SL SCH (10:09)
[2017-11-30] MEDS: HYDROCORTISONE 1% TOPICAL CREAM 30 GM TUBE TP SCH ×2 (10:10→21:28)
--- NOTE | 2017-11-30 13:14 | PN ---
[facility] Progress Note Note: Vital Signs Temperature 97.9 F 11/30/17 07:29 Pulse Rate 105 H 11/30/17 09:15 Respiratory Rate 18 11/30/17 07:29 Blood Pressure 106/69 11/30/17 09:15 O2 Sat by Pulse Oximetry (%) c/o of acid reflux Protonix 20 mg QD order continue to monitor
[2017-11-30] MEDS: PANTOPRAZOLE 20 MG TABLET (FP) PO SCH (14:45)
[2017-11-30] MEDS: traZODone HCL 100 MG TABLET (FP) PO SCH (21:27)
[2017-11-30] MEDS: THIAMINE HCL 100 MG TABLET (FP) PO SCH (21:27)
[2017-12-01] MEDS: GABAPENTIN 300 MG CAPSULE (FP) PO SCH ×2 (10:11→21:35)
[2017-12-01] MEDS: NICOTINE 14 MG/24 HOURS TOPICAL PATCH TD SCH (10:11)
[2017-12-01] MEDS: PRENATAL VITAMINS W/ FOLIC ACID TABLET (FP) PO SCH (10:11)
[2017-12-01] MEDS: PANTOPRAZOLE 20 MG TABLET (FP) PO SCH (10:12)
[2017-12-01] MEDS: FLUoxetine HCL 20 MG CAPSULE (FP) PO SCH (10:12)
[2017-12-01] MEDS: amLODIPine BESYLATE 5 MG TABLET (FP) PO SCH (10:12)
[2017-12-01] MEDS: HYDROCORTISONE 1% TOPICAL CREAM 30 GM TUBE TP SCH ×2 (10:12→22:16)
[2017-12-01] MEDS: BUPRENORPHINE/NALOXONE 8 MG/2 MG FILM PACKET SL SCH (10:13)
[2017-12-01] MEDS: ACAMPROSATE CALCIUM 333 MG TABLET.DR PO SCH ×2 (17:17→21:35)
[2017-12-01] MEDS: IBUPROFEN 400 MG TABLET (FP) PO PRN (18:47)
[2017-12-01] MEDS ORDERED: PT OWN MED DRAWER 7, Y5N ONE (19:42)
[2017-12-01] MEDS: traZODone HCL 100 MG TABLET (FP) PO SCH (21:35)
[2017-12-01] MEDS: THIAMINE HCL 100 MG TABLET (FP) PO SCH (21:35)
--- NOTE | 2017-12-01 22:16 | PN ---
S Progress Note Note: Vital Signs Temperature 97.7 F 12/01/17 06:53 Pulse Rate 102 H 12/01/17 09:39 Respiratory Rate 18 12/01/17 06:53 Blood Pressure 108/67 12/01/17 09:39 O2 Sat by Pulse Oximetry (%) c/o pain wrist pain radiating to thumb ibuprofen PRN continue to monitor
[2017-12-02] MEDS: ACAMPROSATE CALCIUM 333 MG TABLET.DR PO SCH ×3 (07:18→21:27)
[2017-12-02] MEDS: NICOTINE 14 MG/24 HOURS TOPICAL PATCH TD SCH (09:58)
[2017-12-02] MEDS: PRENATAL VITAMINS W/ FOLIC ACID TABLET (FP) PO SCH (09:58)
[2017-12-02] MEDS: GABAPENTIN 300 MG CAPSULE (FP) PO SCH ×2 (09:58→21:27)
[2017-12-02] MEDS: PANTOPRAZOLE 20 MG TABLET (FP) PO SCH (09:58)
[2017-12-02] MEDS: FLUoxetine HCL 20 MG CAPSULE (FP) PO SCH (09:58)
[2017-12-02] MEDS: amLODIPine BESYLATE 5 MG TABLET (FP) PO SCH (09:58)
[2017-12-02] MEDS: HYDROCORTISONE 1% TOPICAL CREAM 30 GM TUBE TP SCH ×2 (09:59→21:28)
[2017-12-02] MEDS: BUPRENORPHINE/NALOXONE 8 MG/2 MG FILM PACKET SL SCH (10:00)
[2017-12-02] MEDS: traZODone HCL 100 MG TABLET (FP) PO SCH (21:27)
[2017-12-02] MEDS: THIAMINE HCL 100 MG TABLET (FP) PO SCH (21:27)
[2017-12-03] MEDS: ACAMPROSATE CALCIUM 333 MG TABLET.DR PO SCH ×3 (07:02→21:29)
[2017-12-03] MEDS: NICOTINE 14 MG/24 HOURS TOPICAL PATCH TD SCH (10:14)
[2017-12-03] MEDS: BUPRENORPHINE/NALOXONE 8 MG/2 MG FILM PACKET SL SCH (10:14)
[2017-12-03] MEDS: PANTOPRAZOLE 20 MG TABLET (FP) PO SCH (10:15)
[2017-12-03] MEDS: amLODIPine BESYLATE 5 MG TABLET (FP) PO SCH (10:15)
[2017-12-03] MEDS: PRENATAL VITAMINS W/ FOLIC ACID TABLET (FP) PO SCH (10:15)
[2017-12-03] MEDS: FLUoxetine HCL 20 MG CAPSULE (FP) PO SCH (10:15)
[2017-12-03] MEDS: GABAPENTIN 300 MG CAPSULE (FP) PO SCH ×2 (10:15→21:29)
[2017-12-03] MEDS: HYDROCORTISONE 1% TOPICAL CREAM 30 GM TUBE TP SCH ×2 (10:16→21:30)
[2017-12-03] MEDS ORDERED: PT OWN MED DRAWER 7, Y5N ONE (10:34)
[2017-12-03] MEDS: THIAMINE HCL 100 MG TABLET (FP) PO SCH (21:29)
[2017-12-03] MEDS: traZODone HCL 100 MG TABLET (FP) PO SCH (21:29)
[2017-12-04] MEDS: ACAMPROSATE CALCIUM 333 MG TABLET.DR PO SCH ×3 (06:42→21:48)
[2017-12-04] MEDS ORDERED: PT OWN MED DRAWER 7, Y5N ONE ×2 (08:39→13:18)
[2017-12-04] MEDS: GABAPENTIN 300 MG CAPSULE (FP) PO SCH ×2 (10:17→21:48)
[2017-12-04] MEDS: PRENATAL VITAMINS W/ FOLIC ACID TABLET (FP) PO SCH (10:17)
[2017-12-04] MEDS: FLUoxetine HCL 20 MG CAPSULE (FP) PO SCH (10:17)
[2017-12-04] MEDS: amLODIPine BESYLATE 5 MG TABLET (FP) PO SCH (10:17)
[2017-12-04] MEDS: PANTOPRAZOLE 20 MG TABLET (FP) PO SCH (10:20)
[2017-12-04] MEDS: HYDROCORTISONE 1% TOPICAL CREAM 30 GM TUBE TP SCH ×2 (10:42→21:49)
[2017-12-04] MEDS: NICOTINE 14 MG/24 HOURS TOPICAL PATCH TD SCH (10:42)
[2017-12-04] MEDS ORDERED: BUPRENORPHINE/NALOXONE 8 MG/2 MG FILM PACKET SL ONE (11:15)
[2017-12-04] MEDS: traZODone HCL 100 MG TABLET (FP) PO SCH (21:48)
[2017-12-04] MEDS: THIAMINE HCL 100 MG TABLET (FP) PO SCH (21:48)
[2017-12-05] MEDS: ACAMPROSATE CALCIUM 333 MG TABLET.DR PO SCH ×3 (06:23→21:23)
[2017-12-05] MEDS ORDERED: PT OWN MED DRAWER 7, Y5N ONE (08:50)
[2017-12-05] MEDS: ACETAMINOPHEN 325 MG TABLET (FP) PO PRN (09:00)
[2017-12-05] MEDS: FLUoxetine HCL 20 MG CAPSULE (FP) PO SCH (09:00)
[2017-12-05] MEDS: GABAPENTIN 300 MG CAPSULE (FP) PO SCH ×2 (09:00→21:23)
[2017-12-05] MEDS: PRENATAL VITAMINS W/ FOLIC ACID TABLET (FP) PO SCH (09:00)
[2017-12-05] MEDS: amLODIPine BESYLATE 5 MG TABLET (FP) PO SCH (09:01)
[2017-12-05] MEDS: PANTOPRAZOLE 20 MG TABLET (FP) PO SCH (09:01)
[2017-12-05] MEDS: BUPRENORPHINE/NALOXONE 8 MG/2 MG FILM PACKET SL SCH (09:01)
[2017-12-05] MEDS: NICOTINE 14 MG/24 HOURS TOPICAL PATCH TD SCH (09:02)
[2017-12-05] MEDS: HYDROCORTISONE 1% TOPICAL CREAM 30 GM TUBE TP SCH ×2 (09:02→21:23)
[2017-12-05] MEDS: traZODone HCL 100 MG TABLET (FP) PO SCH (21:22)
[2017-12-05] MEDS: THIAMINE HCL 100 MG TABLET (FP) PO SCH (21:22)
[2017-12-06] MEDS: ACAMPROSATE CALCIUM 333 MG TABLET.DR PO SCH ×3 (06:28→21:35)
[2017-12-06] MEDS: HYDROCORTISONE 1% TOPICAL CREAM 30 GM TUBE TP SCH ×2 (10:22→21:36)
[2017-12-06] MEDS: PRENATAL VITAMINS W/ FOLIC ACID TABLET (FP) PO SCH (10:23)
[2017-12-06] MEDS: amLODIPine BESYLATE 5 MG TABLET (FP) PO SCH (10:23)
[2017-12-06] MEDS: PANTOPRAZOLE 20 MG TABLET (FP) PO SCH (10:23)
[2017-12-06] MEDS: NICOTINE 14 MG/24 HOURS TOPICAL PATCH TD SCH (10:23)
[2017-12-06] MEDS: FLUoxetine HCL 20 MG CAPSULE (FP) PO SCH (10:23)
[2017-12-06] MEDS: GABAPENTIN 300 MG CAPSULE (FP) PO SCH ×2 (10:23→21:35)
[2017-12-06] MEDS: BUPRENORPHINE/NALOXONE 8 MG/2 MG FILM PACKET SL SCH (10:24)
--- NOTE | 2017-12-06 15:07 | PN ---
S Progress Note Note: PATIENT SEEN FOR EVALUATION OF LEFT LOWER LEG REDNESS AND SWELLING. PATIENT DENIES FEVER AND CALF PAIN. IN NAD. ALERT AND ORIENTED X 3. LLE EXAM NORMAL. RLE WITH MILD REDNESS AND +1 SWELLING. NO CALF REDNESS/SWELLING. + PEDAL PULSE. FULL ROM. Vital Signs Temperature 97.9 F 12/06/17 06:45 Pulse Rate 94 H 12/06/17 09:26 Respiratory Rate 18 12/06/17 06:45 Blood Pressure 123/74 12/06/17 09:26 O2 Sat by Pulse Oximetry (%) A/P: LLE CELLULITIS WILL ORDER KEFLEX 500MG TID X 7 DAYS LEG ELEVATION PRN CONTINUE TO MONITOR CLINICALLY
[2017-12-06] MEDS: THIAMINE HCL 100 MG TABLET (FP) PO SCH (21:35)
[2017-12-06] MEDS: traZODone HCL 100 MG TABLET (FP) PO SCH (21:35)
[2017-12-06] MEDS: CEPHALEXIN MONOHYDRATE 500 MG CAPSULE (UD) PO SCH (21:37)
[2017-12-07] MEDS: CEPHALEXIN MONOHYDRATE 500 MG CAPSULE (UD) PO SCH ×3 (06:43→21:35)
[2017-12-07] MEDS: ACAMPROSATE CALCIUM 333 MG TABLET.DR PO SCH ×3 (06:43→21:34)
[2017-12-07] MEDS: HYDROCORTISONE 1% TOPICAL CREAM 30 GM TUBE TP SCH ×2 (09:55→21:37)
[2017-12-07] MEDS: amLODIPine BESYLATE 5 MG TABLET (FP) PO SCH (09:56)
[2017-12-07] MEDS: PRENATAL VITAMINS W/ FOLIC ACID TABLET (FP) PO SCH (09:56)
[2017-12-07] MEDS: FLUoxetine HCL 20 MG CAPSULE (FP) PO SCH (09:56)
[2017-12-07] MEDS: PANTOPRAZOLE 20 MG TABLET (FP) PO SCH (09:56)
[2017-12-07] MEDS: NICOTINE 14 MG/24 HOURS TOPICAL PATCH TD SCH (09:56)
[2017-12-07] MEDS: GABAPENTIN 300 MG CAPSULE (FP) PO SCH ×2 (09:56→21:35)
[2017-12-07] MEDS: BUPRENORPHINE/NALOXONE 8 MG/2 MG FILM PACKET SL SCH (09:57)
[2017-12-07] MEDS: ACETAMINOPHEN 325 MG TABLET (FP) PO PRN (13:12)
[2017-12-07] MEDS: THIAMINE HCL 100 MG TABLET (FP) PO SCH (21:35)
[2017-12-07] MEDS: traZODone HCL 100 MG TABLET (FP) PO SCH (21:35)
[2017-12-07] MEDS ORDERED: PT OWN MED DRAWER 7, Y5N ONE (21:37)
[2017-12-07] MEDS: IBUPROFEN 400 MG TABLET (FP) PO PRN (21:37)
[2017-12-08] MEDS: CEPHALEXIN MONOHYDRATE 500 MG CAPSULE (UD) PO SCH ×3 (06:43→21:27)
[2017-12-08] MEDS: ACAMPROSATE CALCIUM 333 MG TABLET.DR PO SCH ×3 (06:43→21:27)
[2017-12-08] MEDS ORDERED: PT OWN MED DRAWER 7, Y5N ONE (08:31)
[2017-12-08] MEDS: HYDROCORTISONE 1% TOPICAL CREAM 30 GM TUBE TP SCH ×2 (09:52→21:28)
[2017-12-08] MEDS: PANTOPRAZOLE 20 MG TABLET (FP) PO SCH (09:53)
[2017-12-08] MEDS: FLUoxetine HCL 20 MG CAPSULE (FP) PO SCH (09:53)
[2017-12-08] MEDS: amLODIPine BESYLATE 5 MG TABLET (FP) PO SCH (09:53)
[2017-12-08] MEDS: GABAPENTIN 300 MG CAPSULE (FP) PO SCH ×2 (09:53→21:28)
[2017-12-08] MEDS: PRENATAL VITAMINS W/ FOLIC ACID TABLET (FP) PO SCH (09:53)
[2017-12-08] MEDS: NICOTINE 14 MG/24 HOURS TOPICAL PATCH TD SCH (09:53)
[2017-12-08] MEDS: BUPRENORPHINE/NALOXONE 8 MG/2 MG FILM PACKET SL SCH (09:55)
[2017-12-08] MEDS: IBUPROFEN 400 MG TABLET (FP) PO PRN (18:43)
[2017-12-08] MEDS: THIAMINE HCL 100 MG TABLET (FP) PO SCH (21:27)
[2017-12-08] MEDS: traZODone HCL 100 MG TABLET (FP) PO SCH (21:27)
[2017-12-09] MEDS: ACAMPROSATE CALCIUM 333 MG TABLET.DR PO SCH ×3 (06:42→21:15)
[2017-12-09] MEDS: CEPHALEXIN MONOHYDRATE 500 MG CAPSULE (UD) PO SCH ×3 (06:42→21:15)
[2017-12-09] MEDS: PANTOPRAZOLE 20 MG TABLET (FP) PO SCH (09:43)
[2017-12-09] MEDS: GABAPENTIN 300 MG CAPSULE (FP) PO SCH ×2 (09:43→21:15)
[2017-12-09] MEDS: BUPRENORPHINE/NALOXONE 8 MG/2 MG FILM PACKET SL SCH (09:43)
[2017-12-09] MEDS: amLODIPine BESYLATE 5 MG TABLET (FP) PO SCH (09:43)
[2017-12-09] MEDS: PRENATAL VITAMINS W/ FOLIC ACID TABLET (FP) PO SCH (09:43)
[2017-12-09] MEDS: FLUoxetine HCL 20 MG CAPSULE (FP) PO SCH (09:43)
[2017-12-09] MEDS: NICOTINE 14 MG/24 HOURS TOPICAL PATCH TD SCH (09:45)
[2017-12-09] MEDS: HYDROCORTISONE 1% TOPICAL CREAM 30 GM TUBE TP SCH ×2 (09:45→21:16)
[2017-12-09] MEDS ORDERED: PT OWN MED DRAWER 7, Y5N ONE (19:43)
[2017-12-09] MEDS: traZODone HCL 100 MG TABLET (FP) PO SCH (21:15)
[2017-12-09] MEDS: THIAMINE HCL 100 MG TABLET (FP) PO SCH (21:15)
[2017-12-10] MEDS: CEPHALEXIN MONOHYDRATE 500 MG CAPSULE (UD) PO SCH ×3 (06:52→21:24)
[2017-12-10] MEDS: ACAMPROSATE CALCIUM 333 MG TABLET.DR PO SCH ×3 (06:52→21:24)
[2017-12-10] MEDS: PRENATAL VITAMINS W/ FOLIC ACID TABLET (FP) PO SCH (09:52)
[2017-12-10] MEDS: PANTOPRAZOLE 20 MG TABLET (FP) PO SCH (09:52)
[2017-12-10] MEDS: amLODIPine BESYLATE 5 MG TABLET (FP) PO SCH (09:52)
[2017-12-10] MEDS: BUPRENORPHINE/NALOXONE 8 MG/2 MG FILM PACKET SL SCH (09:53)
[2017-12-10] MEDS: NICOTINE 14 MG/24 HOURS TOPICAL PATCH TD SCH (09:53)
[2017-12-10] MEDS: GABAPENTIN 300 MG CAPSULE (FP) PO SCH ×2 (09:53→21:24)
[2017-12-10] MEDS: FLUoxetine HCL 20 MG CAPSULE (FP) PO SCH (09:53)
[2017-12-10] MEDS: HYDROCORTISONE 1% TOPICAL CREAM 30 GM TUBE TP SCH ×2 (09:53→21:25)
[2017-12-10] MEDS ORDERED: PT OWN MED DRAWER 7, Y5N ONE (19:29)
[2017-12-10] MEDS: THIAMINE HCL 100 MG TABLET (FP) PO SCH (21:24)
[2017-12-10] MEDS: traZODone HCL 100 MG TABLET (FP) PO SCH (21:24)
[2017-12-11] MEDS: ACAMPROSATE CALCIUM 333 MG TABLET.DR PO SCH (06:34)
[2017-12-11] MEDS: CEPHALEXIN MONOHYDRATE 500 MG CAPSULE (UD) PO SCH (06:34)
[2017-12-11 07:22] VITALS: TEMP 97.8
--- NOTE | 2017-12-11 08:34 | PN ---
Psychiatric Progress Note Vital Signs: Vital Signs Period Temp Pulse Resp BP Sys/Amin Pulse Ox Last 24 Hr 97.8 F 79-101 16-18 130-151/84-96 Date of Session: 12/11/17 Chief Complaint:: Discharge visit Current Medications: Active Medications Generic Name Dose Route Start Last Admin Trade Name Freq PRN Reason Stop Dose Admin Acamprosate 666 mg 12/01/17 15:00 12/11/17 06:34 Campral - PO 666 mg TID JAMAAL Administration Acetaminophen 650 mg 11/27/17 14:37 12/07/17 13:12 Tylenol - PO 650 mg Q4H PRN Administration FEVER Al Hydroxide/Mg Hydroxide 30 ml 11/27/17 14:37 11/29/17 23:01 Mylanta Oral Suspension - PO 30 ml Q6H PRN Administration DYSPEPSIA Albuterol Sulfate 2 puff 11/27/17 14:46 Ventolin Hfa Inhaler - IH Q4H PRN SHORT OF BREATH/WHEEZING Amlodipine Besylate 5 mg 11/28/17 10:00 12/10/17 09:52 Norvasc - PO 5 mg DAILY JAMAAL Administration Buprenorphine/Naloxone 1 each 12/05/17 10:00 12/10/17 09:53 Suboxone 8mg/2mg Sl Film - SL 12/11/17 09:59 1 each DAILY JAMAAL Administration Cephalexin HCl 500 mg 12/06/17 22:00 12/11/17 06:34 Keflex - PO 12/13/17 21:59 500 mg TID JAMAAL Administration Eucalyptus/Menthol/Phenol/Sorbitol 1 each 11/27/17 14:37 Cepastat Lozenge - MM Q4H PRN SORE THROAT Fluoxetine HCl 20 mg 11/28/17 10:00 12/10/17 09:53 Prozac - PO 20 mg DAILY JAMAAL Administration Gabapentin 300 mg 11/27/17 22:00 12/10/17 21:24 Neurontin - PO 300 mg BID JAMAAL Administration Guaifenesin 10 ml 11/27/17 14:37 Robitussin Dm - PO Q6H PRN COUGH Hydrocortisone 1 applic 11/27/17 22:00 12/10/17 21:25 Hytone 1% Cream - TP Not Given BID JAMAAL Ibuprofen 400 mg 11/27/17 14:37 12/08/17 18:43 Motrin - PO 400 mg Q6H PRN Administration Pain Level 4-6 Loperamide HCl 4 mg 11/27/17 14:37 Imodium - PO Q6H PRN DIARRHEA Magnesium Citrate 300 ml 11/27/17 14:37 Citroma - PO Q48H PRN CONSTIPATION Magnesium Hydroxide 30 ml 11/27/17 14:37 Milk Of Magnesia - PO DAILY PRN CONSTIPATION Melatonin 5 mg 11/27/17 22:00 Melatonin PO HS PRN INSOMNIA Nicotine 14 mg 11/27/17 15:30 12/10/17 09:53 Nicoderm Patch - TD Not Given DAILY JAMAAL Nicotine Polacrilex 2 mg 11/27/17 14:37 Nicorette Gum - BUC Q2H PRN NICOTINE REPLACEMENT RX Pantoprazole Sodium 20 mg 11/30/17 13:45 12/10/17 09:52 Protonix - PO 20 mg DAILY JAMAAL Administration Multivit/Folic Acid/Iron 1 tab 11/28/17 10:00 12/10/17 09:52 Vitamins ([facility]) - PO 1 tab DAILY JAMAAL Administration Pseudoephedrine/Triprolidine 1 combo 11/27/17 14:37 Actifed - PO TID PRN NASAL CONGESTION Thiamine HCl 100 mg 11/27/17 22:00 12/10/17 21:24 Vitamin B1 - PO 100 mg HS JAMAAL Administration Trazodone HCl 100 mg 11/27/17 22:00 12/10/17 21:24 Desyrel - PO 100 mg HS JAMAAL Administration Current Side Effect: No Lab tests ordered: No Lab tests reviewed: Yes [facility],Campral 333 mg po 2 tab po tid,Prozac 20 mg po daily. Total face to face time:: 30 Psychiatric Treatment Plan - Problem List (1) Nicotine dependence Qualifiers: Nicotine product type: cigarettes Substance use status: in withdrawal Qualified Code(s): F17.213 - Nicotine dependence, cigarettes, with withdrawal (2) Hypertension Qualifiers: Hypertension type: essential hypertension Qualified Code(s): I10 - Essential (primary) hypertension (4) Hyperlipidemia Qualifiers: Hyperlipidemia type: unspecified Qualified Code(s): E78.5 - Hyperlipidemia , unspecified
[2017-12-11 09:55] VITALS: BP 145/78; PULSE 97
[2017-12-11] MEDS: PANTOPRAZOLE 20 MG TABLET (FP) PO SCH (09:57)
[2017-12-11] MEDS: amLODIPine BESYLATE 5 MG TABLET (FP) PO SCH (09:57)
[2017-12-11] MEDS: GABAPENTIN 300 MG CAPSULE (FP) PO SCH (09:57)
[2017-12-11] MEDS: FLUoxetine HCL 20 MG CAPSULE (FP) PO SCH (10:01)
[2017-12-11] MEDS ORDERED: BUPRENORPHINE/NALOXONE 8 MG/2 MG FILM PACKET SL ONE (10:07)
[2017-12-11] MEDS: HYDROCORTISONE 1% TOPICAL CREAM 30 GM TUBE TP SCH (10:21)
[2017-12-11] MEDS: NICOTINE 14 MG/24 HOURS TOPICAL PATCH TD SCH (10:21)
[2017-12-11] MEDS: PRENATAL VITAMINS W/ FOLIC ACID TABLET (FP) PO SCH (10:22)
== END 2017-12-11 10:25 | disposition home or self-care (01) | DRG 772 ==
LOC: YASAS 10:56 → Y3E 14:48
PROVIDERS: ADMIT Psychiatry & Neurology Psychiatry; ATTEND Psychiatry & Neurology Psychiatry
PROC: HZ42ZZZ Group Counseling for Substance Abuse Treatment, Cognitive-Behavioral (ICD-10-PCS; principal; 2017-11-27)
DX: F11.20 Opioid dependence, uncomplicated (principal); F10.20 Alcohol dependence, uncomplicated; F17.213 Nicotine dependence, cigarettes, with withdrawal; F19.24 Other psychoactive substance dependence with psychoactive substance-induced mood disorder; I10 Essential (primary) hypertension; E78.5 Hyperlipidemia, unspecified; L03.116 Cellulitis of left lower limb; Z91.5 Personal history of self-harm

== ENCOUNTER 2017-12-22 10:07 | Emergency (ER) | payer OTHER ==
[2017-12-22 10:19] VITALS: BMI 24.3
--- NOTE | 2017-12-22 10:35 | PDOC ---
History of Present Illness - General History Source: Patient Exam Limitations: No Limitations - History of Present Illness Initial Comments: 12/22/17 11:49 The patient is a 62 year old female with a significant PMH of hypertension, hyperlipidemia, alcohol nicotine dependance, depression, anxiety who presents to the emergency department with chronic lower back pain for 1 year. The patient reports that her back pain has worsened within the past month. She describes her lower back pain as a 10/10 in severity. The patient reports that she has been experiencing trouble walking secondary to her back pain. She states that she is unable to walk a full block without stopping with pain. She reports some lower extremity swelling and numbness in thighs. The patient also reports some chronic urinary incontinence that has been ongoing for about 1 year. The patient denies any other complaints. She denies any fever, chills, nausea, vomit, diarrhea, constipation or other urinary symptoms. He denies any chest pain, shortness of breath, headache and dizziness. The patient denies any other complaints. Social history: Smoker, 30 days clean from alcohol, 7 years clean from heroin <Saul Beck - Last Filed: 12/22/17 11:49> <Kathryn Mathews - Last Filed: 12/22/17 15:42> - General Chief Complaint: Edema Stated Complaint: LOWER BACK PAIN Time Seen by Provider: 12/22/17 10:34 Past History <Saul Beck - Last Filed: 12/22/17 11:49> - Past Medical History Anemia: No Asthma: No Cancer: No Cardiac Disorders: No CVA: No COPD: No CHF: No Dementia: Yes (not on medication) Diabetes: No GI Disorders: No Disorders: No HTN: Yes Hypercholesterolemia: No Kidney Stones: No Liver Disease: No Seizures: No Thyroid Disease: No - Surgical History Abdominal Surgery: No Appendectomy: No Cardiac Surgery: No Cholecystectomy: No Lung Surgery: No Neurologic Surgery: No Orthopedic Surgery: No - Reproductive History PID: No - Suicide/Smoking/Psychosocial Hx Smoking Status: No Smoking History: Current every day smoker Have you smoked in the past 12 months: Yes Number of Cigarettes Smoked Daily: 8 Information on smoking cessation initiated: No 'Breaking Loose' booklet given: 11/27/17 Hx Alcohol Use: Yes (drinking since 28 yo,6 packs daily) Drug/Substance Use Hx: Yes (h/o cocaine,heroin use,stopped 10 yo,on suboxone) Substance Use Type: Alcohol, Opiates Hx Substance Use Treatment: Yes (no significant abstinence time from alcohol) <Kathryn Mathews - Last Filed: 12/22/17 15:42> - Past Medical History Allergies/Adverse Reactions: Allergies Allergy/AdvReac Type Severity Reaction Status Date / Time No Known Allergies Allergy Verified 12/22/17 10:13 Home Medications: Ambulatory Orders Buprenorphine HCl/Naloxone HCl [Suboxone 8 mg-2 mg Sl Tablets] 1 each SL DAILY 11/22/17 Cetirizine HCl [Zyrtec -] 10 mg PO DAILY 11/22/17 traZODone HCL [Trazodone HCl] 100 mg PO HS #30 tablet 11/23/17 Amlodipine Besylate 5 mg PO DAILY #14 tablet 11/26/17 Albuterol Sulfate Inhaler - [Ventolin Hfa Inhaler -] 2 inh PO Q4H PRN 11/27/17 Acamprosate Calcium [Campral -] 666 mg PO TID #120 tablet. 12/10/17 Fluoxetine HCl [Prozac -] 20 mg PO DAILY #30 capsule 12/10/17 Gabapentin 300 mg PO BID #60 capsule 12/10/17 Review of Systems - Review of Systems Able to Perform ROS?: Yes Comments:: 12/22/17 11:50 GENERAL/CONSTITUTIONAL: No fever or chills. No weakness. HEAD, EYES, EARS, NOSE AND THROAT: No change in vision. No ear pain or discharge. No sore throat. CARDIOVASCULAR: No chest pain or shortness of breath. RESPIRATORY: No cough, wheezing, or hemoptysis. GASTROINTESTINAL: No nausea, vomiting, diarrhea or constipation. GENITOURINARY: (+)urinary incontinence. No dysuria, frequency. MUSCULOSKELETAL: (+)lower back pain. Bilateral leg pain and swelling. No neck pain. SKIN: No rash NEUROLOGIC: No headache, vertigo, loss of consciousness, or change in strength/ sensation. ENDOCRINE: No increased thirst. No abnormal weight change. HEMATOLOGIC/LYMPHATIC: No anemia, easy bleeding, or history of blood clots. ALLERGIC/IMMUNOLOGIC: No hives or skin allergy. <Saul Beck - Last Filed: 12/22/17 11:49> *Physical Exam - Vital Signs Last Vital Signs Temp Pulse Resp BP Pulse Ox 98.6 F 89 19 126/67 96 12/22/17 10:13 12/22/17 10:13 12/22/17 10:13 12/22/17 10:13 12/22/17 10:13 - Physical Exam Comments: 12/22/17 11:51 GENERAL: Awake, alert, and fully oriented, in no acute distress HEAD: No signs of trauma EYES: PERRLA, EOMI, sclera anicteric, conjunctiva clear ENT: Auricles normal inspection, hearing grossly normal, nares patent, oropharynx clear without exudates. Moist mucosa NECK: Normal ROM, supple, no lymphadenopathy, JVD, or masses LUNGS: Breath sounds equal, clear to auscultation bilaterally. No wheezes, and no crackles HEART: Regular rate and rhythm, normal S1 and S2, no murmurs, rubs or gallops ABDOMEN: Soft, nontender, normoactive bowel sounds. No guarding, no rebound. No masses EXTREMITIES: (+)trace pitting edema in feet (left greater than right) with slightly diminished pulse . paresthesia in bilateral feet. tenderness at SI joint. Normal range of motion, no edema. No clubbing or cyanosis. No cords, erythema, or tenderness NEUROLOGICAL: Cranial nerves II through XII grossly intact. Normal speech, normal gait SKIN: Warm, Dry, normal turgor, no rashes or lesions noted. RECTAL: Rectal tone normal. Light brown stool. <Saul Beck - Last Filed: 12/22/17 11:49> - Vital Signs Last Vital Signs Temp Pulse Resp BP Pulse Ox 98.6 F 89 19 126/67 96 12/22/17 10:13 12/22/17 10:13 12/22/17 10:13 12/22/17 10:13 12/22/17 10:13 <Kathryn Mathews - Last Filed: 12/22/17 15:42> ED Treatment Course - LABORATORY CBC & Chemistry Diagram: 12/22/17 13:25 12/22/17 13:25 <Kathryn Mahtews - Last Filed: 12/22/17 15:42> Medical Decision Making - Medical Decision Making 12/22/17 11:14 a/p: 62yo female with multiple complaints going on for a month-year -hx of lbp - states worse over last month since getting out of alcohol detox - no new trauma, hx of sciatica -states lbp when she walks - pain goes down both legs -also with paresthesias in feet - dx with neuropathy as outpt on gabapentin -describes claudication - and leg swelling, slightly diminished DP on L foot -will send for both arterial and venous dopplers -will obtain xray of back -no signs/symptoms of caude equina -normal rectal tone and no saddle paresthesias -no weakness to legs - pain down legs -hx of narcotic abuse and dependence, on suboxone -will medicate with lidoderm patch and tylenol -hx of 1 year of urinary incontinecne - will send ua -will send labs, will monitor and reassess -started on keflex by PMD 1 week ago for L lateral foot cellulitis which is mildly warm, no erythema 12/22/17 14:36 pt feeling better ambulatory with a steady gait in the ED duplex artery shows mild PAD negative for dvt discussed imaging and need for follow up with spine and vascular sx for further eval labs reviewed with the paitent. 12/22/17 15:39 pt feeling better at the bedside stable for d/c to home answered all questions. discussed all reasons to return to the ED and need for follow up with the specialists. <Kathryn Mathews - Last Filed: 12/22/17 15:42> *DC/Admit/Observation/Transfer - Attestations Scribe Attestion: 12/22/17 11:51 Documentation prepared by Saul Beck, acting as medical accounts receivable specialist for Kathryn Mathews MD. <Saul Beck - Last Filed: 12/22/17 11:49> - Discharge Dispostion Decision to Admit order: No - Attestations Physician Attestion: 12/22/17 15:41 I, Dr. Kathryn Mathews, DO, attest that this document has been prepared under my direction and personally reviewed by me in its entirety. I further attest, that it accurately reflects all work, treatment, procedures and medical decision -making performed by me. <Kathryn Mathews - Last Filed: 12/22/17 15:42> Diagnosis at time of Disposition: Leg pain, Back pain - Discharge Dispostion Disposition: HOME Condition at time of disposition: Stable - Referrals Referrals: Charline Fraire [Primary Care Provider] - Justo Alvarez MD [Staff Physician] - Edgardo Babb MD [Non Staff, Medical] - Luis Armando Nguyen MD [Staff Physician] - - Patient Instructions Printed Discharge Instructions: DI for Low Back Pain, DI for Leg Pain Additional Instructions: Please take antibiotics to completion. Please follow up with the orthopedic surgeon and the vascular surgeon. Please return to the ED with any further concerns or complaints. Please follow up with your PMD.
[2017-12-22] MEDS ORDERED: ACETAMINOPHEN 325 MG TABLET (FP) PO ONE (11:12)
[2017-12-22] MEDS ORDERED: LIDOCAINE 5% TOPICAL PATCH TP ONE (11:13)
[2017-12-22] MEDS ORDERED: ACETAMINOPHEN 325 MG TABLET (FP) ONE (11:23)
[2017-12-22] MEDS ORDERED: LIDOCAINE 5% TOPICAL PATCH ONE (11:23)
[2017-12-22 13:46] LABS: BASO % 0.5 % (0-2.0); EOS % 10.4 % (0-4.5); HEMATOCRIT 40.2 % (32.4-45.2); HEMOGLOBIN 13.4 GM/dL (10.7-15.3); MCH 32.3 pg (25.7-33.7); MCHC 33.4 g/dl (32.0-36.0); MEAN CELL VOLUME 96.7 fl (80-96); MEAN PLT VOLUME 7.8 fl (7.5-11.1); MONO % 7.8 % (3.8-10.2); NEUT % 60.3 % (42.8-82.8); PLATELET COUNT 221 K/MM3 (134-434); RBC 4.16 M/mm3 (3.60-5.2); RDW 12.5 % (11.6-15.6); WHITE BLOOD COUNT 5.8 K/mm3 (4.0-10.0)
[2017-12-22 14:15] LABS: ALBUMIN 3.7 g/dl (3.4-5.0); ALK PHOS 64 U/L (45-117); ANION GAP 6 MMOL/L (8-16); BILIRUBIN,TOTAL 0.2 mg/dL (0.2-1.0); BLOOD UREA NITROGEN 3 mg/dL (7-18); CALCIUM 9.3 mg/dL (8.5-10.1); CHLORIDE 105 mmol/L (98-107); CO2 30 mmol/L (21-32); CREATININE 0.6 mg/dL (0.55-1.02); GLUCOSE,RANDOM 107 mg/dL (74-106); POTASSIUM 3.9 mmol/L (3.5-5.1); SGOT/AST 19 U/L (15-37); SGPT/ALT 24 U/L (12-78); SODIUM 141 mmol/L (136-145); TOT PROT 7.7 g/dl (6.4-8.2)
[2017-12-22 14:44] LABS: N-TERMINAL BNP 111.13 pg/ml (5-125)
[2017-12-22 15:30] LABS: URINE APPEARANCE CLEAR; URINE BILIRUBIN NEGATIVE (<2.0 mg/dL); URINE COLOR LTYELLOW; URINE GLUCOSE (UA) NEGATIVE (NEGATIVE); URINE KETONE NEGATIVE (NEGATIVE); URINE LEUK ESTERASE NEGATIVE (NEGATIVE); URINE NITRITE NEGATIVE (NEGATIVE); URINE PROTEIN NEGATIVE (NEGATIVE); URINE UROBILINOGEN NEGATIVE mg/dL (0.2-1.0)
[2017-12-22 16:12] VITALS: BP 126/82; PULSE 70; TEMP 98.7
[2017-12-22] MEDS ORDERED: LIDOCAINE PATCH REMOVAL MC SCH (22:00)
== END 2017-12-22 16:05 | disposition home or self-care (01) ==
LOC: JER 10:07
DX: M54.5 Low back pain (principal); M79.606 Pain in leg, unspecified
CPT/HCPCS: 36415; 72100-TC-FY; 80053; 81003; 83880; 85025; 93925-TC; 93970-TC; 99282-25

== ENCOUNTER 2017-12-25 16:01 | Emergency (ER) | payer OTHER ==
--- NOTE | 2017-12-25 16:06 | PDOC ---
Rapid Medical Evaluation Time Seen by Provider: 12/25/17 16:06 Medical Evaluation: Allergies Allergy/AdvReac Type Severity Reaction Status Date / Time No Known Allergies Allergy Verified 12/25/17 16:04 12/25/17 16:07 62-year-old female with a significant HTN, HLD, EtOH abuse (none x 32 days s/p rehab stay), former IVDU on Suboxone, depression/anxiety, LE neuropathy, seen in ED 12/22 for low back pain limiting ambulation and bilat LE swelling. Workup at that time included LS spine Xray with degenerative changes and LE duplex neg for DVT but pos for atherosclerosis. Returns today with same complaints ( primarily back pain). V/s on arrival unremarkable. Alert, oriented, no distress. Able to ambulate although painful. 5/5 LE strength. -To Main ED for further evaluation
[2017-12-25 16:09] VITALS: BP 126/67; PULSE 66; TEMP 98.3; BMI 24.3
[2017-12-25] MEDS ORDERED: LIDOCAINE 5% TOPICAL PATCH TP ONE (19:05)
[2017-12-25] MEDS ORDERED: METHOCARBAMOL 750 MG TABLET PO ONE (19:06)
[2017-12-25] MEDS ORDERED: KETOROLAC TROMETHAMINE 60 MG/2 ML VIAL IM ONE (19:22)
[2017-12-25] MEDS ORDERED: ACETAMINOPHEN 325 MG TABLET (FP) PO ONE (19:22)
[2017-12-25] MEDS ORDERED: METHOCARBAMOL 500 MG TABLET ONE (19:22)
[2017-12-25] MEDS ORDERED: LIDOCAINE 5% TOPICAL PATCH ONE (19:23)
[2017-12-25] MEDS ORDERED: KETOROLAC TROMETHAMINE 60 MG/2 ML VIAL ONE (19:39)
[2017-12-25] MEDS ORDERED: ACETAMINOPHEN 325 MG TABLET (FP) ONE (19:39)
--- NOTE | 2017-12-25 19:45 | PDOC ---
History of Present Illness - General Chief Complaint: Pain Stated Complaint: SWOLLEN LEGS, BACK PAIN Time Seen by Provider: 12/25/17 16:06 History Source: Patient Exam Limitations: No Limitations - History of Present Illness Initial Comments: 12/25/17 19:39 Patient is a 62F with history of HTN, HLD, alcohol abuse (last drink 32 days ago ), IVDU (on suboxone) here today complaining of back pain and leg pain for the past year. Patient was evaluated 3 days ago in the ED. Workup at that time ruled out CHF, ACS, DVT. Lumbar x-rays were normal. She was discharged home to follow up with her primary care doctor. Patient states that she is presenting to the hospital today because she was unable to contact her primary care physician and the other doctor she called did not take her insurance. Denies chest pain, shortness of breath. Denies history of blood clots. She describes her back pain as paraspinal back pain worse on both sides. Endorses urinary incontinence, but states that this is at her baseline. Denies saddle anesthesia. Last IVDU 12 years ago. States that she cannot walk. Her leg pain is described as a burning with associated loss of sensation. Patient endorses drinking beer for 30 years, just now getting sober. Past History - Past Medical History Allergies/Adverse Reactions: Allergies Allergy/AdvReac Type Severity Reaction Status Date / Time No Known Allergies Allergy Verified 12/25/17 16:04 Home Medications: Ambulatory Orders Buprenorphine HCl/Naloxone HCl [Suboxone 8 mg-2 mg Sl Tablets] 1 each SL DAILY 11/22/17 Cetirizine HCl [Zyrtec -] 10 mg PO DAILY 11/22/17 traZODone HCL [Trazodone HCl] 100 mg PO HS #30 tablet 11/23/17 Amlodipine Besylate 5 mg PO DAILY #14 tablet 11/26/17 Albuterol Sulfate Inhaler - [Ventolin Hfa Inhaler -] 2 inh PO Q4H PRN 11/27/17 Acamprosate Calcium [Campral -] 666 mg PO TID #120 tablet. 12/10/17 Fluoxetine HCl [Prozac -] 20 mg PO DAILY #30 capsule 12/10/17 Gabapentin 300 mg PO BID #60 capsule 12/10/17 Anemia: No Asthma: No Cancer: No Cardiac Disorders: No CVA: No COPD: No CHF: No DVT: No Dementia: Yes (not on medication) Diabetes: No GI Disorders: No Disorders: No HTN: Yes Hypercholesterolemia: Yes Kidney Stones: No Liver Disease: No Seizures: No Thyroid Disease: No Other medical history: ON SABOXEN - Surgical History Abdominal Surgery: No Appendectomy: No Cardiac Surgery: No Cholecystectomy: No Lung Surgery: No Neurologic Surgery: No Orthopedic Surgery: No - Reproductive History PID: No - Suicide/Smoking/Psychosocial Hx Smoking Status: No Smoking History: Current every day smoker Have you smoked in the past 12 months: Yes Number of Cigarettes Smoked Daily: 8 Information on smoking cessation initiated: Yes 'Breaking Loose' booklet given: 12/25/17 Hx Alcohol Use: Yes (drinking since 28 yo,6 packs daily) Drug/Substance Use Hx: Yes (h/o cocaine,heroin use,stopped 10 yo,on suboxone) Substance Use Type: Alcohol, Opiates Hx Substance Use Treatment: Yes (no significant abstinence time from alcohol) Review of Systems - Review of Systems Comments:: 12/25/17 19:45 GENERAL/CONSTITUTIONAL: No fever or chills. No weakness. HEAD, EYES, EARS, NOSE AND THROAT: No change in vision. No ear pain or discharge. No sore throat. CARDIOVASCULAR: No chest pain or shortness of breath RESPIRATORY: No cough, wheezing, or hemoptysis. GASTROINTESTINAL: No nausea, vomiting, diarrhea or constipation. GENITOURINARY: No dysuria, frequency, or change in urination. MUSCULOSKELETAL: +leg pain. No neck pain +back pain. SKIN: No rash NEUROLOGIC: No headache, vertigo, loss of consciousness, or change in strength/ sensation. ENDOCRINE: No increased thirst. No abnormal weight change HEMATOLOGIC/LYMPHATIC: No anemia, easy bleeding, or history of blood clots. ALLERGIC/IMMUNOLOGIC: No hives or skin allergy. *Physical Exam - Vital Signs Last Vital Signs Temp Pulse Resp BP Pulse Ox 98.3 F 66 18 126/67 100 12/25/17 16:06 12/25/17 16:06 12/25/17 16:06 12/25/17 16:06 12/25/17 16:06 - Physical Exam Comments: 12/25/17 19:47 GENERAL: Awake, alert, and fully oriented, in no acute distress BACK: +paraspinal back pain bilaterally, -straight leg test, refuses to ambulate HEAD: No signs of trauma, normocephalic, atraumatic EYES: PERRLA, EOMI, sclera anicteric, conjunctiva clear ENT: Auricles normal inspection, hearing grossly normal, nares patent, oropharynx clear without exudates. Moist mucosa NECK: Normal ROM, supple, no lymphadenopathy, JVD, or masses LUNGS: No distress, speaks full sentences, clear to auscultation bilaterally HEART: Regular rate and rhythm, normal S1 and S2, no murmurs, rubs or gallops, peripheral pulses normal and equal bilaterally. ABDOMEN: Soft, nontender, normoactive bowel sounds. No guarding, no rebound. No masses EXTREMITIES: Normal inspection, Normal range of motion, no edema. No clubbing or cyanosis. NEUROLOGICAL: Cranial nerves II through XII grossly intact. Normal speech, normal gait, no focal motor deficits. 5/5 strength in legs bilaterally. Decreased sensation in right foot. SKIN: Warm, Dry, normal turgor, no rashes or lesions noted. ED Treatment Course - Medications Given in the ED: ED Medications Discontinued Medications Generic Name Dose Route Start Last Admin Trade Name Freq PRN Reason Stop Dose Admin Lidocaine 1 patch 12/25/17 19:05 12/25/17 19:15 Lidoderm Patch - TP 12/25/17 19:06 1 patch ONCE ONE Administration Methocarbamol 750 mg 12/25/17 19:06 12/25/17 19:15 Robaxin - PO 12/25/17 19:07 750 mg ONCE ONE Administration Medical Decision Making - Medical Decision Making 12/25/17 19:48 Patient is 62F with history of HTN, HLD, etoh abuse (32 days sober), IVDU (last use 12 years ago, on suboxone) here today complaining of back and leg pain. Vitals normal and stable. Full workup 3 days ago normal. Will treat with lidocaine, toradol, robaxin, tylenol and attempt to ambulate. 12/25/17 20:04 Patient twisting around in bed and lifting legs in bed without difficulty. Patient told that she can walk, admitted to being able to walk, but not for one block without pain. Patient expressed frustration with treatment, stated that she will walk out and be evaluated at other hospital. Asking for pain medication. Patient discharged, ambulatory. *DC/Admit/Observation/Transfer Diagnosis at time of Disposition: Back pain - Discharge Dispostion Disposition: HOME Condition at time of disposition: Good Decision to Admit order: No - Referrals Referrals: Charline Fraire [Primary Care Provider] - - Patient Instructions Printed Discharge Instructions: DI for Low Back Pain Additional Instructions: Please return if you have any new, worsening or concerning symptoms. Please follow up with your primary care doctor. - Post Discharge Activity
--- NOTE | 2017-12-25 20:25 | PDOC ---
Attending Attestation - Resident Resident Name: Zander Frank - ED Attending Attestation I have performed the following: I have examined & evaluated the patient, The case was reviewed & discussed with the resident, I agree w/resident's findings & plan - HPI HPI: 12/25/17 20:20 A portion of this note was documented by scribe services under my direction. I have reviewed the details of the note, within reason, and agree with the documentation with the following case summary and management plan written by me. 62 year old female, with a significant past medical history of hypertension, hyperlipidemia, alcohol and nicotine dependance, depression, anxiety, who presents to the emergency department with, bilateral lower extremity numbness/ pain and lower lumbar back pain. states "I cannot walk with this pain." no trauma. She denies recent fevers, chills, headache or dizziness. She denies recent nausea, vomit, diarrhea or constipation. She denies recent dysuria, frequency, urgency or hematuria. She denies recent chest pain or shortness of breath. Allergies: NKA Past surgical history: None reported. Social history: Smoker, Former Alcoholic, 7 years clean from heroin. Primary Care Physician: Dr. Fraire 12/25/17 20:21 - Physicial Exam PE: 12/25/17 20:21 NAD, well appearing, +anxious and crying. MMM, nl conjunctiva, anicteric; neck supple. lungs clear, RRR, abdomen soft nontender. FORD x4, no focal neuro deficits. No peripheral edema. normal color for ethnicity, WWP. +lower paravertebral lumbar tenderness, no midline tenderness. baseline BLE L5-S1 decreased sensation in both legs, distal strength in BLE 5/5 against resistance. ROM intact, 2+ DP pulses. - Medical Decision Making 12/25/17 20:22 62 year old female, with a significant past medical history of hypertension, hyperlipidemia, alcohol and nicotine dependance, depression, anxiety, who presents to the emergency department with lower back pain and lower extrem numbness. no trauma or signs of infection. tylenol for pain, feels similar to prior back pains. no active IVDU per patient. sober x 1 month. VS wnl, +anxious and crying [pain control with toradol, tylenol, flexeril and lidoderm patch. prior Cr normal clinically doubt cauda equina or cord pathology to warrant emergent imaging, as no midline symptoms in back or systemic findings. paravertebral tenderness elicited. no acute new changes in neuro sx, as baseline with peripheral neuropathy. will reeval in the ED, ambulate and pain control. will rx lidoderm patches, ambulated out of the department without difficulty. f/u PCP and discussed pain regimen. 12/25/17 20:22 12/25/17 20:22 12/25/17 20:25
[2017-12-25] MEDS ORDERED: LIDOCAINE PATCH REMOVAL MC SCH (22:00)
== END 2017-12-25 20:30 | disposition home or self-care (01) ==
LOC: JER 16:01
PROC: 3E0233Z Introduction of Anti-inflammatory into Muscle, Percutaneous Approach (ICD-10-PCS; principal; 2017-12-25)
DX: M54.9 Dorsalgia, unspecified (principal); I10 Essential (primary) hypertension; E78.00 Pure hypercholesterolemia, unspecified; F41.8 Other specified anxiety disorders; G62.9 Polyneuropathy, unspecified; F03.90 Unspecified dementia, unspecified severity, without behavioral disturbance, psychotic disturbance, mood disturbance, and anxiety; F19.11 Other psychoactive substance abuse, in remission
CPT/HCPCS: 96372; 99282-25

== ENCOUNTER 2022-09-02 03:50 | Day surgery (SDC) | payer OTHER ==
[2022-09-01 08:48] VITALS: BMI 24.6
[2022-09-02] MEDS ORDERED: TRIAMCINOLONE ACET 40MG/1ML VIAL ONE (07:17)
[2022-09-02] MEDS ORDERED: BUPIVACAINE HCL/PF 0.5% (5MG/ML) 10 ML VIAL ONE (07:17)
[2022-09-02] MEDS ORDERED: LIDOCAINE HCL/PF 1% SDV 5ML VIAL ONE (07:18)
[2022-09-02 10:16] VITALS: TEMP 98.7
[2022-09-02] MEDS ORDERED: BUPIVACAINE HCL/PF 0.5% (5 MG/ML) 30 ML VIAL IJ ONE ×2 (10:34→11:07)
[2022-09-02] MEDS ORDERED: LIDOCAINE HCL 1% PRESERVATIVE FREE - 30ML VIAL IJ ONE ×2 (10:34→11:07)
[2022-09-02] MEDS ORDERED: IOHEXOL 180 MG/1 ML ML IJ ONE ×2 (10:35→11:07)
[2022-09-02] MEDS ORDERED: TRIAMCINOLONE ACETONIDE 40 MG/ML 10 ML VIAL IJ ONE (10:36)
[2022-09-02 11:35] VITALS: BP 140/88; PULSE 77; RESP 16
[2022-09-02] MEDS ORDERED: ACETAMINOPHEN 500 MG TABLET (FP) PO PRN (14:06)
== END 2022-09-02 12:40 | disposition home or self-care (01) ==
LOC: JASU-SURG 03:50
PROVIDERS: ATTEND Pain Medicine Pain Medicine
PROC: 3E0U3BZ Introduction of Anesthetic Agent into Joints, Percutaneous Approach (ICD-10-PCS; 2022-09-02)
PROC: 3E0U33Z Introduction of Anti-inflammatory into Joints, Percutaneous Approach (ICD-10-PCS; principal; 2022-09-02 11:45)
DX: M53.3 Sacrococcygeal disorders, not elsewhere classified (principal)
CPT/HCPCS: 76000-TC-FY

== ENCOUNTER 2022-12-16 04:07 | Day surgery (SDC) | payer OTHER ==
[2022-12-14 11:17] VITALS: BMI 25.0
[~2022-12-16 04:07] MED LIST: ACETAMINOPHEN 500 MG TABLET (FP) PO PRN; BUPIVACAINE HCL/PF 0.75% 10 ML VIAL NR ONE; LIDOCAINE HCL 1% PRESERVATIVE FREE - 30ML VIAL IJ ONE
[2022-12-16] MEDS ORDERED: ACETAMINOPHEN 500 MG TABLET (FP) PO PRN (09:28)
[2022-12-16] MEDS ORDERED: LIDOCAINE HCL/PF 1% SDV 5ML VIAL ONE ×2 (12:02→12:04)
[2022-12-16] MEDS ORDERED: BUPIVACAINE HCL/PF 0.75% 10 ML VIAL NR ONE (12:09)
[2022-12-16] MEDS ORDERED: LIDOCAINE HCL 1% PRESERVATIVE FREE - 30ML VIAL IJ ONE (12:09)
[2022-12-16] MEDS ORDERED: ACETAMINOPHEN 500 MG TABLET (FP) ONE (12:53)
[2022-12-16 13:06] VITALS: RESP 18
[2022-12-16 13:07] VITALS: BP 152/62; PULSE 80; TEMP 97.4
== END 2022-12-16 13:40 | disposition home or self-care (01) ==
LOC: JASU-SURG 04:07
PROVIDERS: ATTEND Pain Medicine Pain Medicine
PROC: 3E0T33Z Introduction of Anti-inflammatory into Peripheral Nerves and Plexi, Percutaneous Approach (ICD-10-PCS; 2022-12-16)
PROC: 3E0T3BZ Introduction of Anesthetic Agent into Peripheral Nerves and Plexi, Percutaneous Approach (ICD-10-PCS; principal; 2022-12-16 12:30)
DX: M47.816 Spondylosis without myelopathy or radiculopathy, lumbar region (principal)
CPT/HCPCS: 76000-TC-FY

== ENCOUNTER 2023-01-24 04:16 | Day surgery (SDC) | payer OTHER ==
[2023-01-20 11:19] VITALS: BMI 25.0
[2023-01-24] MEDS ORDERED: BUPIVACAINE HCL/PF 0.25% (2.5MG/ML) 10 ML VIAL ONE (07:50)
[2023-01-24] MEDS ORDERED: BUPIVACAINE HCL/PF 0.75% 10 ML VIAL ONE (07:51)
[2023-01-24] MEDS ORDERED: BUPIVACAINE HCL/PF 0.5% (5MG/ML) 10 ML VIAL ONE (07:51)
[2023-01-24] MEDS ORDERED: ACETAMINOPHEN 500 MG TABLET (FP) PO PRN (08:57)
[2023-01-24] MEDS ORDERED: LIDOCAINE 1% P/F 10 MG/ML VIAL INF ONE (13:25)
[2023-01-24] MEDS ORDERED: BUPIVACAINE HCL/PF 0.5% (5MG/ML) 10 ML VIAL NR ONE (13:25)
[2023-01-24] MEDS ORDERED: ACETAMINOPHEN 500 MG TABLET (FP) ONE (14:01)
[2023-01-24] MEDS ORDERED: ACETAMINOPHEN 500 MG TABLET (FP) PO ONE (14:15)
[2023-01-24 15:16] VITALS: RESP 18
[2023-01-24 15:18] VITALS: BP 126/69; PULSE 72; TEMP 97.8
== END 2023-01-24 14:40 | disposition home or self-care (01) ==
LOC: JASU-SURG 04:16
PROVIDERS: ATTEND Pain Medicine Pain Medicine
PROC: 3E0T33Z Introduction of Anti-inflammatory into Peripheral Nerves and Plexi, Percutaneous Approach (ICD-10-PCS; 2023-01-24)
PROC: 3E0T3BZ Introduction of Anesthetic Agent into Peripheral Nerves and Plexi, Percutaneous Approach (ICD-10-PCS; principal; 2023-01-24 13:00)
DX: M47.16 Other spondylosis with myelopathy, lumbar region (principal)
CPT/HCPCS: 76000-TC-FY

== ENCOUNTER 2023-02-17 04:31 | Day surgery (SDC) | payer OTHER ==
[2023-02-15 18:44] VITALS: BMI 25.0
[2023-02-17 06:20] VITALS: RESP 18
[2023-02-17] MEDS ORDERED: DEXAMETHASONE SOD PHOSPHATE 10 MG/1 ML VIAL ONE (07:14)
[2023-02-17] MEDS ORDERED: LIDOCAINE HCL/PF 2% SDV 5ML VIAL ONE (07:14)
[2023-02-17] MEDS ORDERED: LIDOCAINE HCL/PF 1% SDV 5ML VIAL ONE (07:14)
[2023-02-17] MEDS ORDERED: BUPIVACAINE HCL/PF 0.75% 10 ML VIAL ONE (07:14)
[2023-02-17] MEDS ORDERED: LIDOCAINE HCL 1% PRESERVATIVE FREE - 30ML VIAL IJ ONE (08:27)
[2023-02-17] MEDS ORDERED: BUPIVACAINE HCL/PF 0.75% 10 ML VIAL NR ONE (08:35)
[2023-02-17] MEDS ORDERED: DEXAMETHASONE SOD PHOSPHATE 10 MG/1 ML VIAL IVPB ONE (08:35)
[2023-02-17] MEDS ORDERED: LIDOCAINE HCL/PF 2% SDV 5ML VIAL INF ONE (08:35)
[2023-02-17] MEDS ORDERED: ACETAMINOPHEN 500 MG TABLET (FP) ONE (09:22)
[2023-02-17] MEDS ORDERED: ACETAMINOPHEN 500 MG TABLET (FP) PO ONE (09:23)
[2023-02-17 10:21] VITALS: BP 139/76; PULSE 77; TEMP 97
[2023-02-17] MEDS ORDERED: ACETAMINOPHEN 500 MG TABLET (FP) PO PRN (13:36)
== END 2023-02-17 10:10 | disposition home or self-care (01) ==
LOC: JASU-SURG 04:31
PROVIDERS: ATTEND Pain Medicine Pain Medicine
PROC: 015B3ZZ Destruction of Lumbar Nerve, Percutaneous Approach (ICD-10-PCS; principal; 2023-02-17 08:00)
DX: M47.816 Spondylosis without myelopathy or radiculopathy, lumbar region (principal)
CPT/HCPCS: 76000-TC-FY; J1100

== ENCOUNTER 2023-10-10 15:20 | Emergency (ER) | payer OTHER ==
[2023-10-10 16:23] VITALS: BP 119/87; PULSE 102; RESP 20; TEMP 98.5; BMI 25.2
[2023-10-10 18:23] LABS: BASO % 0.6 % (0-2.0); EOS % 4.6 % (0-4.5); HEMATOCRIT 41.7 % (32.4-45.2); HEMOGLOBIN 14.3 GM/dL (10.7-15.3); LYMPH % 22.4 % (8-40); MCH 32.9 pg (25.7-33.7); MCHC 34.2 g/dl (32.0-36.0); MEAN CELL VOLUME 96.2 fl (80-96); MEAN PLT VOLUME 7.4 fl (7.5-11.1); MONO % 7.2 % (3.8-10.2); NEUT % 65.2 % (42.8-82.8); PLATELET COUNT 284 10^3/uL (134-434); RBC 4.33 M/mm3 (3.60-5.2); RDW 13.3 % (11.6-15.6); WHITE BLOOD COUNT 7.7 K/mm3 (4.0-10.0)
[2023-10-10 18:34] LABS: INR 1.03 (0.83-1.09); PROTHROMBIN TIME (PATIENT) 11.6 SEC (9.7-13.0)
[2023-10-10 18:37] LABS: ACTIVATED PTT 32.9 SECONDS (25.2-36.5)
[2023-10-10 18:46] LABS: POTASSIUM 3.8 mmol/L (3.5-5.1)
[2023-10-10] MEDS ORDERED: ALBUTEROL SO4 2.5/IPRATROPIUM 0.5 INH SOL 3 ML VIAL.NEB. NEB ONE (18:47)
[2023-10-10 18:48] LABS: ALBUMIN 4.2 g/dl (3.4-5.0); BLOOD UREA NITROGEN 6.9 mg/dL (7-18); CALCIUM 9.9 mg/dL (8.5-10.1)
[2023-10-10 18:51] LABS: CREATININE 0.9 mg/dL (0.55-1.3)
[2023-10-10 18:53] LABS: BILIRUBIN,TOTAL 0.4 mg/dL (0.2-1); TOT PROT 8.8 g/dl (6.4-8.2)
[2023-10-10] MEDS: ALBUTEROL SO4 2.5/IPRATROPIUM 0.5 INH SOL 3 ML VIAL.NEB. NEB ONE (18:53)
== END 2023-10-10 22:54 | disposition home or self-care (01) ==
LOC: JER 15:20
PROC: 3E0F7GC Introduction of Other Therapeutic Substance into Respiratory Tract, Via Natural or Artificial Opening (ICD-10-PCS; principal; 2023-10-10)
DX: J44.9 Chronic obstructive pulmonary disease, unspecified (principal); R06.02 Shortness of breath; R07.9 Chest pain, unspecified; G89.29 Other chronic pain; F17.210 Nicotine dependence, cigarettes, uncomplicated
CPT/HCPCS: 36415; 71045-TC-FY; 71275-TC; 74177-TC; 80053; 84484; 85025; 85379; 85610; 85730; 93005; 93010; 99285-25; Q9967

== ENCOUNTER 2024-08-27 18:47 | Emergency (ER) | payer OTHER ==
[2024-08-27 18:59] VITALS: TEMP 98.7; BMI 25.8
[2024-08-27] MEDS ORDERED: LIDOCAINE 4% PATCH TP ONE (21:07)
[2024-08-27] MEDS ORDERED: KETOROLAC TROMETHAMINE 15 MG/ML VIAL ONE (21:08)
[2024-08-27] MEDS: LIDOCAINE 4% PATCH TP ONE (21:24)
[2024-08-27] MEDS: KETOROLAC TROMETHAMINE 30 MG/1 ML VIAL IM ONE (21:24)
[2024-08-27 23:11] VITALS: BP 141/82; PULSE 86; RESP 18
== END 2024-08-27 23:20 | disposition home or self-care (01) ==
LOC: JER 18:47
PROC: 3E0233Z Introduction of Anti-inflammatory into Muscle, Percutaneous Approach (ICD-10-PCS; principal; 2024-08-27)
DX: M25.552 Pain in left hip (principal); R11.0 Nausea; R19.7 Diarrhea, unspecified; R10.9 Unspecified abdominal pain
CPT/HCPCS: 72170-TC-FY; 99284-25